=== PATIENT | female | born 1995 | race Caucasian/White ===

== ENCOUNTER 2017-12-04 23:54 | Inpatient (IN) | payer OTHER ==
[2017-12-05 00:55] LABS: Urine Appearance Clear; Urine Blood 1+ (Negative); Urine Color Yellow; Urine Ketones Trace (Negative); Urine Protein Negative (Negative); Urine Urobilinogen Negative (Negative)
[2017-12-05 01:47] LABS: ABS Basophils 0.1 10^3/ul (0-0.2); ABS Eosinophils 0.1 10^3/ul (0-0.6); ABS Lymphocytes 2.7 10^3/ul (1.0-4.8); ABS Monocytes 0.3 10^3/ul (0-0.8); ABS Nucleated RBC 0 10^3/ul; Eosinophil % 0.9 % (0-6); Hematocrit 41 % (35-47); Hemoglobin 13.9 g/dl (12.0-16.0); Lymphocyte % 37.4 % (25-47); Mean Corpuscular HGB Conc 34 g/dl (31-36); Mean Corpuscular Hemoglobin 31 pg (27-31); Mean Corpuscular Volume 91 fL (80-97); Mean Platelet Volume 8.3 um3 (7.4-10.4); Nucleated Red Blood Cells % 0; Platelet Count 276 10^3/ul (150-450); Red Blood Count 4.46 10^6/ul (4.0-5.4); Red Cell Distribution Width 12 % (10.5-15); White Blood Count 7.1 10^3/ul (3.5-10.8)
[2017-12-05 01:52] LABS: EGFR Non-African American 79.3 (>60)
--- NOTE | 2017-12-05 06:04 | ED ---
Ruth Paris Rebecca, scribed for Perry Yoon MD on 12/05/17 at 0026 . Psychiatric Complaint - HPI Summary HPI Summary: Pt is a 22 y/o F who presents to ED c/o a "psychotic breakdown." States that she is feeling very sad and depressed and has not stopped crying since 1900. Feels as though her symptoms became particularly worse at 1500, though she has been stressed out with school. Feels as though her mental health has been worsening since the onset of this academic year. Notes sleep disturbances. Denies SI/HIs currently, though explains she has SIs about 2x a month. Took Lexapro [employer]. Has not had any prior episodes that were this severe. LNMP 1 week ago. - History Of Current Complaint Chief Complaint: EDMentalHealth Time Seen by Provider: 12/05/17 00:25 Hx Obtained From: Patient Onset/Duration: Still Present, Worse Since - 1500 Character: Depressed Aggravating Factor(s): Recent Stress - School Associated Signs And Symptoms: Positive: Sleep Disturbance Has Suicidal: Denies: Thoughts Has Homicidal: Denies: Thoughts - Allergies/Home Medications Allergies/Adverse Reactions: Allergies Allergy/AdvReac Type Severity Reaction Status Date / Time No Known Allergies Allergy Verified 12/05/17 00:05 Home Medications: Home Medications Escitalopram Oxalate [Lexapro] 10 mg PO BEDTIME 12/05/17 [History Confirmed ] PMH/Surg Hx/FS Hx/Imm Hx Previously Healthy: Yes Endocrine/Hematology History: Denies: Hx Thyroid Disease Cardiovascular History: Denies: Hx Hypertension Infectious Disease History: No Infectious Disease History: Denies: Traveled Outside the [place] in Last 30 Days - Family History Known Family History: Positive: Cardiac Disease - grandmother, Diabetes - grandmother, Other - depression (mother) - Social History 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 Alcohol Use: Occasionally Substance Use Type: Reports: Marijuana Substance Use Comment - Amount & Last Used: Occasionally Smoking Status (MU): Never Smoked Tobacco Review of Systems Negative: Fever Positive: Depressed, Other - Sad, sleep disturbance; NEGATIVE: SIs, HIs All Other Systems Reviewed And Are Negative: Yes Physical Exam - Summary Physical Exam Summary: Appearance: Well appearing, no pain distress Skin: warm, dry, reflects adequate perfusion Head/face: normal Eyes: EOMI, NIR ENT: normal Neck: supple, non-tender Respiratory: CTA, breath sounds present Cardiovascular: RRR, pulses symmetrical Abdomen: non-tender, soft Bowel Sounds: present Musculoskeletal: normal, strength/ROM intact Neuro: normal, sensory motor intact, A&Ox3 Psych: Flat affect Triage Information Reviewed: Yes Vital Signs On Initial Exam: Initial Vitals Temp Pulse Resp BP Pulse Ox 98.1 F 74 20 133/87 100 12/05/17 00:05 12/05/17 00:05 12/05/17 00:05 12/05/17 00:05 12/05/17 00:05 Vital Signs Reviewed: Yes Diagnostics - Vital Signs Vital Signs Temp Pulse Resp BP Pulse Ox 12/05/17 00:05 98.1 F 74 20 133/87 100 - Laboratory Lab Results: Lab Results 12/05/17 12/05/17 12/05/17 Range/Units 00:36 00:36 01:22 WBC (3.5-10.8) 10^3/ul RBC (4.0-5.4) 10^6/ul Hgb (12.0-16.0) g/dl Hct (35-47) % MCV (80-97) fL MCH (27-31) pg MCHC (31-36) g/dl RDW (10.5-15) % Plt Count (150-450) 10^3/ul MPV (7.4-10.4) um3 Neut % (Auto) (38-83) % Lymph % (Auto) (25-47) % [place] % (Auto) (0-7) % Eos % (Auto) (0-6) % Baso % (Auto) (0-2) % Absolute Neuts (auto) (1.5-7.7) 10^3/ul Absolute Lymphs (auto) (1.0-4.8) 10^3/ul Absolute Monos (auto) (0-0.8) 10^3/ul Absolute Eos (auto) (0-0.6) 10^3/ul Absolute Basos (auto) (0-0.2) 10^3/ul Absolute Nucleated RBC 10^3/ul Nucleated RBC % Sodium 137 L (139-145) mmol/L Potassium 3.5 (3.5-5.0) mmol/L Chloride 101 (101-111) mmol/L Carbon Dioxide 27 (22-32) mmol/L Anion Gap 9 (2-11) mmol/L BUN 14 (6-24) mg/dL Creatinine 0.89 (0.51-0.95) mg/dL Est GFR ( Amer) 102.0 (>60) Est GFR (Non-Af Amer) 79.3 (>60) BUN/Creatinine Ratio 15.7 (8-20) Glucose 113 H (70-100) mg/dL Calcium 9.8 (8.6-10.3) mg/dL Total Bilirubin 0.30 (0.2-1.0) mg/dL AST 22 (13-39) U/L ALT 13 (7-52) U/L Alkaline Phosphatase 53 (34-104) U/L Total Protein 8.9 (6.4-8.9) g/dL Albumin 5.2 (3.2-5.2) g/dL Globulin 3.7 (2-4) g/dL Albumin/Globulin Ratio 1.4 (1-3) TSH 3.29 (0.34-5.60) mcIU/mL Beta HCG, Quant < 0.60 mIU/mL Urine Color Yellow Urine Appearance Clear Urine pH 7.0 (5-9) Ur Specific [place] 1.030 (1.010-1.030) Urine Protein Negative (Negative) Urine Ketones Trace A (Negative) Urine Blood 1+ A (Negative) Urine Nitrate Negative (Negative) Urine Bilirubin Negative (Negative) Urine Urobilinogen Negative (Negative) Ur Leukocyte Esterase 1+ A (Negative) Urine WBC (Auto) Trace(0-5/hpf) (Absent) Urine RBC (Auto) 2+(6-10/hpf) A (Absent) Ur Squamous Epith Cells Present A (Absent) Urine Bacteria Absent (Absent) Urine Glucose Negative (Negative) Salicylates < 2.50 (<30) mg/dL Urine Opiates Screen None detected (None Detect) Acetaminophen < 15 mcg/mL Ur Barbiturates Screen None detected (None Detect) Ur Phencyclidine Scrn None detected (None Detect) Ur Amphetamines Screen None detected (None Detect) U Benzodiazepines Scrn None detected (None Detect) Urine Cocaine Screen None detected (None Detect) U Cannabinoids Screen None detected (None Detect) Serum Alcohol < 10 (<10) mg/dL 04/24/18 Range/Units 01:22 WBC 7.1 (3.5-10.8) 10^3/ul RBC 4.46 (4.0-5.4) 10^6/ul Hgb 13.9 (12.0-16.0) g/dl Hct 41 (35-47) % MCV 91 (80-97) fL MCH 31 (27-31) pg MCHC 34 (31-36) g/dl RDW 12 (10.5-15) % Plt Count 276 (150-450) 10^3/ul MPV 8.3 (7.4-10.4) um3 Neut % (Auto) 56.5 (38-83) % Lymph % (Auto) 37.4 (25-47) % [place] % (Auto) 4.4 (0-7) % Eos % (Auto) 0.9 (0-6) % Baso % (Auto) 0.8 (0-2) % Absolute Neuts (auto) 4.0 (1.5-7.7) 10^3/ul Absolute Lymphs (auto) 2.7 (1.0-4.8) 10^3/ul Absolute Monos (auto) 0.3 (0-0.8) 10^3/ul Absolute Eos (auto) 0.1 (0-0.6) 10^3/ul Absolute Basos (auto) 0.1 (0-0.2) 10^3/ul Absolute Nucleated RBC 0 10^3/ul Nucleated RBC % 0 Sodium (139-145) mmol/L Potassium (3.5-5.0) mmol/L Chloride (101-111) mmol/L Carbon Dioxide (22-32) mmol/L Anion Gap (2-11) mmol/L BUN (6-24) mg/dL Creatinine (0.51-0.95) mg/dL Est GFR ( Amer) (>60) Est GFR (Non-Af Amer) (>60) BUN/Creatinine Ratio (8-20) Glucose (70-100) mg/dL Calcium (8.6-10.3) mg/dL Total Bilirubin (0.2-1.0) mg/dL AST (13-39) U/L ALT (7-52) U/L Alkaline Phosphatase (34-104) U/L Total Protein (6.4-8.9) g/dL Albumin (3.2-5.2) g/dL Globulin (2-4) g/dL Albumin/Globulin Ratio (1-3) TSH (0.34-5.60) mcIU/mL Beta HCG, Quant mIU/mL Urine Color Urine Appearance Urine pH (5-9) Ur Specific [place] (1.010-1.030) Urine Protein (Negative) Urine Ketones (Negative) Urine Blood (Negative) Urine Nitrate (Negative) Urine Bilirubin (Negative) Urine Urobilinogen (Negative) Ur Leukocyte Esterase (Negative) Urine WBC (Auto) (Absent) Urine RBC (Auto) (Absent) Ur Squamous Epith Cells (Absent) Urine Bacteria (Absent) Urine Glucose (Negative) Salicylates (<30) mg/dL Urine Opiates Screen (None Detect) Acetaminophen mcg/mL Ur Barbiturates Screen (None Detect) Ur Phencyclidine Scrn (None Detect) Ur Amphetamines Screen (None Detect) U Benzodiazepines Scrn (None Detect) Urine Cocaine Screen (None Detect) U Cannabinoids Screen (None Detect) Serum Alcohol (<10) mg/dL Result Diagrams: 12/05/17 01:22 12/05/17 01:22 Lab Statement: Any lab studies that have been ordered have been reviewed, and results considered in the medical decision making process. Course/Dx - Course Course Of Treatment: pt stable medically. Receiving full crisis evaluation. Assessment/Plan: Medically cleared for MHE at 0057. - Differential Dx/Clinical Impression Provider Diagnosis: Major depression Discharge - Sign-Out/Discharge Documenting (check all that apply): Sign-Out Patient Signing out patient TO: Arcadio Hooper - Pending MHE - Discharge Plan Condition: Stable Discharge Disposition Comment: sign out at 7am. Referrals: [facility] - Shaan JONES [Primary Care Provider] - - Billing Disposition and Condition Condition: STABLE The documentation as recorded by the Ruth baxter Rebecca accurately reflects the service I personally performed and the decisions made by , Perry Yoon MD.
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
[2017-12-06] MEDS ORDERED: Venlafaxine EXT RELEASE CAP* 75 MG PO ONE (12:45)
[2017-12-06] MEDS ORDERED: clonazePAM TAB(*) 0.5 MG PO PRN (12:48)
[2017-12-06] MEDS ORDERED: NON FORMULARY MED2 PO SCH (14:00)
[2017-12-06] MEDS: ARIPiprazole TAB* 2 MG PO SCH (16:10)
[2017-12-06] MEDS: ETHINYL ESTRADIOL PO SCH (16:11)
[2017-12-06] MEDS: NORGESTIMATE PO SCH (16:11)
[2017-12-06] MEDS: traZODone TAB* 50 MG TAB PO SCH (20:16)
[2017-12-07] MEDS: Venlafaxine EXT RELEASE CAP* 75 MG PO SCH (09:16)
[2017-12-07] MEDS: ETHINYL ESTRADIOL PO SCH (09:17)
[2017-12-07] MEDS: NORGESTIMATE PO SCH (09:17)
--- NOTE | 2017-12-07 11:43 | PN ---
Subjective - Subjective Subjective: Psychiatric Attending Progress Note: size worker (Amna Dunaway) and myself met with patient to discuss progress and discharge plans. Patient put in 72 hour letter today She reports that she feels ready for discharge. endorses significant decrease in her level of anxiety, brighter mood, and complete remission of suicidal thoughts. She has been attending group s and has found them useful. She spoke with warm in worker from [place] yesterday who will be speaking with her professors in order to arrange extension of due dates for the final papers and tests in all of her classes. 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 she is very much in favor of following up with both psychiatrist and therapist at [facility]. Vital Signs: Temp Pulse Resp BP Pulse Ox 98.1 F 90 16 98/69 100 12/07/17 07:50 12/07/17 07:50 12/07/17 13:52 12/07/17 07:50 12/07/17 07:50 Objective - Appearance Appearance: Well Developed/Nourished Dysmorphic Features: No Hygiene: Normal Grooming: Well Kept - Behavior Psychomotor Activities: Normal Exhibits Abnormal Movement: No - Attitude and Relatedness Attitude and Relatedness: Cooperative Eye Contact: Good - Speech Quality: Unpressured Latencies: Normal Quantity: Appropriate - Mood Patient's Decription of Mood: "Good" - Affect Observed Affect: Good Affect Consistent with: Euthymia - Thought Process Patient's Thought Process: Coherent, Goal Directed Thought Content: No Passive Wish, No Suicidal Planning, No Homicidal Ideation, No Paranoid Ideation - Sensorium Type of Hallucinations: Visual: No, Auditory: No, Command: No - Level of Consciousness Level of Consciousness: Alert Orientation: Yes Intact, Yes Orientated to Time, Yes Orientated to Place, Yes Orientated to Person - Impulse Control Impulse Control: Intact - Insight and Judgement Insight and Judgement: Good - Group Participation Particating in Group Activities: Yes - Medication Management Medication Management Adherence: Yes Assessment - Assessment Clinical Impression: patient is 22 year old admitted with major depressive episode. She has had good initial response to treatment. mood brighter, sleeping much better, and SI has remitted. patient is stable for discharge tomorrow Plan - Plan Treatment Plan: Plan: Increase Effexor XR to 150 mg in AM continue Abilify 2 mg daily continue Trazodone 50 mg qhs discharge tomorrow patient to follow up with [facility] for medication management and weekly therapy Medications: Current Medications Aripiprazole (Abilify Tab*) 2 mg PO DAILY@16 [facility] Last Admin: 12/06/17 16:10 Dose: 2 mg Clonazepam (Klonopin Tab(*)) 0.25 mg PO Q4H PRN PRN Reason: ANXIETY Norgestimate (Ortho Tri-Cyclen (Nf)) 1 tab PO DAILY [facility] Last Admin: 12/07/17 09:17 Dose: 1 tab Trazodone HCl (Desyrel Tab*) 50 mg PO BEDTIME [facility] Last Admin: 12/06/17 20:16 Dose: 50 mg Venlafaxine HCl (Effexor Xr Cap*) 75 mg PO DAILY [facility] Last Admin: 12/07/17 09:16 Dose: 75 mg
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
--- NOTE | 2017-12-07 14:06 | ED ---
Hank Paris Julia, scribed for Arcadio Hooper MD on 12/05/17 at 0728 . Progress - Progress Note Progress Note: This patient is signed out from Dr. Yoon at shift change. - Consult/PCP Time Called: 01:30 Course/Dx - Course Course Of Treatment: pt stable medically. Receiving full crisis evaluation. - Diagnoses Provider Diagnoses: Major depression Discharge - Sign-Out/Discharge Documenting (check all that apply): Receiving Sign-Out Receiving patient FROM: Perry Yoon - dispo - Discharge Plan Condition: Stable Referrals: [facility] [Primary Care Provider] - The documentation as recorded by the nohemyibHank pina Julia accurately reflects the service I personally performed and the decisions made by Rufus thakkar Jerry, MD.
[2017-12-07] MEDS: ARIPiprazole TAB* 2 MG PO SCH (16:23)
--- NOTE | 2017-12-07 16:55 | PN ---
MHU: Group Therapy Note - Service Type Service Type: [id number] Group Psychotherapy - Medication Education Group: Patient was attentive and participatory in group, and remained in good behavioral control. Patient stated understanding of material discussed and had appropriate questions.
[2017-12-07] MEDS: traZODone TAB* 50 MG TAB PO SCH (20:52)
[2017-12-08 07:40] VITALS: BP 105/65
[2017-12-08] MEDS: NORGESTIMATE PO SCH (09:23)
[2017-12-08] MEDS: ETHINYL ESTRADIOL PO SCH (09:23)
[2017-12-08] MEDS: Venlafaxine EXT RELEASE CAP* 75 MG PO SCH (09:23)
[2017-12-08] MEDS ORDERED: Venlafaxine EXT RELEASE CAP* 75 MG PO ONE (10:59)
--- NOTE | 2017-12-08 11:09 | DS ---
Treatment Course & Assessment Clinical Course & Impression: patient is 22 year old admitted with major depressive episode. She has had good initial response to treatment. mood brighter, sleeping much better, and SI has remitted. patient is stable for discharge tomorrow Discharge Planning - Discharge Planning Medications: Current Medications Aripiprazole (Abilify Tab*) 2 mg PO DAILY@16 [facility] Last Admin: 12/07/17 16:23 Dose: 2 mg Clonazepam (Klonopin Tab(*)) 0.25 mg PO Q4H PRN PRN Reason: ANXIETY Norgestimate (Ortho Tri-Cyclen (Nf)) 1 tab PO DAILY [facility] Last Admin: 12/08/17 09:23 Dose: 1 tab Trazodone HCl (Desyrel Tab*) 50 mg PO BEDTIME [facility] Last Admin: 12/07/17 20:52 Dose: 50 mg Venlafaxine HCl (Effexor Xr Cap*) 75 mg PO DAILY [facility] Last Admin: 12/08/17 09:23 Dose: 75 mg Discharge Planning: Prescriptions provided for discharge [] Yes [] No Follow up care details as per social work arrangements. Patient response to discharge plan: [] eager for discharge [] agreeable with discharge plan [] ambivalent about discharge [] disagrees with discharge today
== END 2017-12-08 11:30 | disposition home or self-care (01) | DRG 885 ==
LOC: ED 23:54 → BSU 12-05 15:56
PROVIDERS: ADMIT Psychiatry & Neurology Psychiatry; ATTEND Psychiatry & Neurology Psychiatry
PROC: GZHZZZZ Group Psychotherapy (ICD-10-PCS; principal; 2017-12-08)
DX: F33.2 Major depressive disorder, recurrent severe without psychotic features (principal); F12.90 Cannabis use, unspecified, uncomplicated; R45.851 Suicidal ideations; F41.9 Anxiety disorder, unspecified; Z81.8 Family history of other mental and behavioral disorders; Z82.49 Family history of ischemic heart disease and other diseases of the circulatory system; Z83.3 Family history of diabetes mellitus; Z72.89 Other problems related to lifestyle
CPT/HCPCS: 36415; 80053; 80307; 80320; 80329; 81003; 81015; 84436; 84439; 84443; 84702; 85025; 87086; 90853; 96102; 99222; 99232; 99238; 99283; A9270-GY; G0480

== ENCOUNTER 2018-01-03 12:13 | Inpatient (IN) | payer OTHER ==
[2018-01-03 13:14] LABS: Urine Appearance Clear; Urine Blood 1+ (Negative); Urine Color Yellow; Urine Ketones Trace (Negative); Urine Protein Negative (Negative); Urine Red Blood Cell Trace(0-2/hpf) (Absent); Urine Specific Gravity 1.009 (1.010-1.030); Urine Urobilinogen Negative (Negative); Urine White Blood Cell Trace(0-5/hpf) (Absent)
[2018-01-03 13:42] LABS: ABS Basophils 0.1 10^3/ul (0-0.2); ABS Eosinophils 0.1 10^3/ul (0-0.6); ABS Lymphocytes 1.7 10^3/ul (1.0-4.8); ABS Monocytes 0.3 10^3/ul (0-0.8); ABS Neutrophils 3.4 10^3/ul (1.5-7.7); ABS Nucleated RBC 0 10^3/ul; Hematocrit 37 % (35-47); Hemoglobin 12.5 g/dl (12.0-16.0); Lymphocyte % 31.3 % (25-47); Mean Corpuscular HGB Conc 34 g/dl (31-36); Mean Corpuscular Hemoglobin 31 pg (27-31); Mean Corpuscular Volume 92 fL (80-97); Mean Platelet Volume 7.9 um3 (7.4-10.4); Nucleated Red Blood Cells % 0.1; Platelet Count 229 10^3/ul (150-450); Red Blood Count 4.03 10^6/ul (4.0-5.4); Red Cell Distribution Width 12 % (10.5-15); White Blood Count 5.6 10^3/ul (3.5-10.8)
[2018-01-03 13:59] LABS: EGFR Non-African American 108.2 (>60)
[2018-01-03] MEDS: traZODone TAB* 50 MG TAB PO SCH (22:08)
--- NOTE | 2018-01-04 06:48 | ED ---
Progress - Progress Note Progress Note: Patient was to be transferred as per Dr. Bui's note. Beds became available and it is planned for her to be [place] here [place] [facility] - Consult/PCP Time Called: 18:30 Course/Dx - Diagnoses Provider Diagnoses: Suicidal ideation, Depressive disorder Discharge - Sign-Out/Discharge Documenting (check all that apply): Discharge/Admit/Transfer - Discharge Plan Condition: Stable [facility]position[place] [facility] [place]errals: [facility] - Shaan JONES [Primary Care Provider] - - Billing Disposition and Condition Condition: STABLE Disposition: [facility]
--- NOTE | 2018-01-04 08:12 | PN ---
ED Flex Patient Progress Note Date of Service: 01/04/18 Subjective: This is a 22 year-old F who is pending admission to [facility] secondary to SI. Pt offers no complaints at this time. She states she is feeling better. Objective: Vitals: Most recent vital signs documented below. General NAD, Alert and oriented x3. Heart: rrr at 70bpm Lungs: CTA or with rales, rhonchi, wheezing Laboratory: Current laboratory results documented below. Assessment: SI depression Plan: Pending psychiatric to admit will follow up daily until bed available condition:stable dispo: admit Vital Signs Temp Pulse Resp BP Pulse Ox 98.4 F 80 20 133/86 98 01/03/18 12:35 01/03/18 12:35 01/03/18 12:35 01/03/18 12:35 01/03/18 12:35 Lab Results - Entire Visit 01/03/18 01/03/18 01/03/18 13:30 13:30 12:45 WBC 5.6 RBC 4.03 Hgb 12.5 Hct 37 MCV 92 MCH 31 MCHC 34 RDW 12 Plt Count 229 MPV 7.9 Neut % (Auto) 61.9 Lymph % (Auto) 31.3 Crisp % (Auto) 4.6 Eos % (Auto) 1.0 Baso % (Auto) 1.2 Absolute Neuts (auto) 3.4 Absolute Lymphs (auto) 1.7 Absolute Monos (auto) 0.3 Absolute Eos (auto) 0.1 Absolute Basos (auto) 0.1 Absolute Nucleated RBC 0 Nucleated RBC % 0.1 Sodium 137 L Potassium 3.8 Chloride 105 Carbon Dioxide 24 Anion Gap 8 BUN 10 Creatinine 0.68 Est GFR ( Amer) 139.1 Est GFR (Non-Af Amer) 108.2 BUN/Creatinine Ratio 14.7 Glucose 86 Calcium 9.4 Total Bilirubin 0.50 AST 19 ALT 11 Alkaline Phosphatase 51 Total Protein 7.4 Albumin 4.4 Globulin 3.0 Albumin/Globulin Ratio 1.5 TSH 0.58 Urine Color Urine Appearance Urine pH Ur Specific [place] Urine Protein Urine Ketones Urine Blood Urine Nitrate Urine Bilirubin Urine Urobilinogen Ur Leukocyte Esterase Urine WBC (Auto) Urine RBC (Auto) Ur Squamous Epith Cells Urine Bacteria Urine Glucose Salicylates < 2.50 Urine Opiates Screen None detected Acetaminophen < 15 Ur Barbiturates Screen None detected Ur Phencyclidine Scrn None detected Ur Amphetamines Screen None detected U Benzodiazepines Scrn None detected Urine Cocaine Screen None detected U Cannabinoids Screen None detected Serum Alcohol < 10 01/03/18 12:45 WBC RBC Hgb Hct MCV MCH MCHC RDW Plt Count MPV Neut % (Auto) Lymph % (Auto) Crisp % (Auto) Eos % (Auto) Baso % (Auto) Absolute Neuts (auto) Absolute Lymphs (auto) Absolute Monos (auto) Absolute Eos (auto) Absolute Basos (auto) Absolute Nucleated RBC Nucleated RBC % Sodium Potassium Chloride Carbon Dioxide Anion Gap BUN Creatinine Est GFR ( Amer) Est GFR (Non-Af Amer) BUN/Creatinine Ratio Glucose Calcium Total Bilirubin AST ALT Alkaline Phosphatase Total Protein Albumin Globulin Albumin/Globulin Ratio TSH Urine Color Yellow Urine Appearance Clear Urine pH 5.0 Ur Specific [place] 1.009 L Urine Protein Negative Urine Ketones Trace A Urine Blood 1+ A Urine Nitrate Negative Urine Bilirubin Negative Urine Urobilinogen Negative Ur Leukocyte Esterase Negative Urine WBC (Auto) Trace(0-5/hpf) Urine RBC (Auto) Trace(0-2/hpf) Ur Squamous Epith Cells Present A Urine Bacteria 1+ A Urine Glucose Negative Salicylates Urine Opiates Screen Acetaminophen Ur Barbiturates Screen Ur Phencyclidine Scrn Ur Amphetamines Screen U Benzodiazepines Scrn Urine Cocaine Screen U Cannabinoids Screen Serum Alcohol
[2018-01-04] MEDS ORDERED: ARIPiprazole TAB* 2 MG ONE (08:26)
[2018-01-04] MEDS: ARIPiprazole TAB* 2 MG PO SCH ×2 (09:13→23:29)
[2018-01-04] MEDS: Venlafaxine EXT RELEASE CAP* 75 MG PO SCH (09:15)
[2018-01-04] MEDS: NORGESTIMATE PO SCH (09:17)
[2018-01-04] MEDS: ETHINYL ESTRADIOL PO SCH (09:17)
[2018-01-04] MEDS: [UNRECOGNIZED DRUG - OTHER] PO SCH (09:17)
--- NOTE | 2018-01-04 10:21 | ED ---
Hank Paris Julia, scribed for Sam Bui MD on 01/03/18 at 1231 . Psychiatric Complaint - HPI Summary HPI Summary: This is a 22 year old F BIBA to [facility] with a chief complaint of worsening depression with SI this morning. She reports a plan to overdose with sleeping pills. She is unable to sleep without medication. She reports decreased appetite. She reports previous SI, without an attempt. - History Of Current Complaint Time Seen by Provider: 01/03/18 12:16 Hx Obtained From: Patient Onset/Duration: Gradual Onset, Lasting Hours Timing: Constant Character: Depressed Associated Signs And Symptoms: Positive: Sleep Disturbance, Appetite Change Related History: Positive For: Prior Psychiatric Issues Has Suicidal: Reports: Thoughts, With A Plan - Allergies/Home Medications Allergies/Adverse Reactions: Allergies Allergy/AdvReac Type Severity Reaction Status Date / Time No Known Allergies Allergy Verified 12/05/17 00:05 PMH/Surg Hx/FS Hx/Imm Hx Endocrine/Hematology History: Denies: Hx Thyroid Disease Cardiovascular History: Denies: Hx Hypertension History: Reports: Other Problems/Disorders - HPV positive Sensory History: Denies: Hx Contacts or Glasses, Hx Hearing Aid Opthamlomology History: Denies: Hx Contacts or Glasses Psychiatric History: Reports: Hx Anxiety, Hx Depression - onset 2015, Hx Community Mental Health Tx - CAPS Denies: Hx of Violent Episodes Against Others Infectious Disease History: No - Family History Known Family History: Positive: Cardiac Disease - grandmother, Diabetes - grandmother, Other - depression (mother) - Social History Alcohol Use: Occasionally Substance Use Type: Reports: Marijuana Substance Use Comment - Amount & Last Used: Occasionally Smoking Status (MU): Never Smoked Tobacco Have You Smoked in the Last Year: No Review of Systems Constitutional: Negative Positive: Depressed All Other Systems Reviewed And Are Negative: Yes Physical Exam - Summary Physical Exam Summary: VITAL SIGNS: Reviewed. GENERAL: Patient is a well-developed and nourished femalewho is lying comfortable in the stretcher. Patient is not in any acute respiratory distress. HEAD AND FACE: No signs of trauma. No ecchymosis, hematomas or skull depressions. No sinus tenderness. EYES: PERRLA, EOMI x 2, No injected conjunctiva, no nystagmus. EARS: Hearing grossly intact. Ear canals and tympanic membranes are within normal limits. MOUTH: Oropharynx within normal limits. NECK: Supple, trachea is midline, no adenopathy, no JVD, no carotid bruit, no c- spine tenderness, neck with full ROM. CHEST: Symmetric, no tenderness at palpation LUNGS: Clear to auscultation bilaterally. No wheezing or crackles. CVS: Regular rate and rhythm, S1 and S2 present, no murmurs or gallops appreciated. ABDOMEN: Soft, non-tender. No signs of distention. No rebound no guarding, and no masses palpated. Bowel sounds are normal. EXTREMITIES: FROM in all major joints, no edema, no cyanosis or clubbing. NEURO: Alert and oriented x 3. No acute neurological deficits. Speech is normal and follows commands. SKIN: Dry and warm PSYCH: Depressed, quiet, and reports suicidal thoughts and plan. No homicidal thoughts or plan. No signs of psychosis or pressure speech. No tangential speech. Triage Information Reviewed: Yes Vital Signs On Initial Exam: Initial Vitals Temp Pulse Resp BP Pulse Ox 98.4 F 80 20 133/86 98 01/03/18 12:35 01/03/18 12:35 01/03/18 12:35 01/03/18 12:35 01/03/18 12:35 Vital Signs Reviewed: Yes Diagnostics - Vital Signs Vital Signs Temp Pulse Resp BP Pulse Ox 01/03/18 12:35 98.4 F 80 20 133/86 98 - Laboratory Lab Results: Lab Results 01/03/18 01/03/18 Range/Units 12:45 12:45 Urine Color Yellow Urine Appearance Clear Urine pH 5.0 (5-9) Ur Specific [place] 1.009 L (1.010-1.030) Urine Protein Negative (Negative) Urine Ketones Trace A (Negative) Urine Blood 1+ A (Negative) Urine Nitrate Negative (Negative) Urine Bilirubin Negative (Negative) Urine Urobilinogen Negative (Negative) Ur Leukocyte Esterase Negative (Negative) Urine WBC (Auto) Trace(0-5/hpf) (Absent) Urine RBC (Auto) Trace(0-2/hpf) (Absent) Ur Squamous Epith Cells Present A (Absent) Urine Bacteria 1+ A (Absent) Urine Glucose Negative (Negative) Urine Opiates Screen None detected (None Detect) Ur Barbiturates Screen None detected (None Detect) Ur Phencyclidine Scrn None detected (None Detect) Ur Amphetamines Screen None detected (None Detect) U Benzodiazepines Scrn None detected (None Detect) Urine Cocaine Screen None detected (None Detect) U Cannabinoids Screen None detected (None Detect) Result Diagrams: 01/03/18 13:30 01/03/18 13:30 Lab Statement: Any lab studies that have been ordered have been reviewed, and results considered in the medical decision making process. Course/Dx - Course Assessment/Plan: This patient is a 22-year-old female who presents to the emergency room with a chief complaint of suicidal ideation. Patient reports that she has history of depression and suicidal ideations. She has insomnia and decreased appetite. Blood work w/o a significant abnormality. She is medically cleared. She is awaiting for a MHE. Patient is hemodynamically stable and A+O x 3. Patient was signed out to Dr. Yoon at shift change - Differential Dx/Clinical Impression Differential Diagnosis/HQI/PQRI: Positive: Anxiety, Depression, Suicidal Ideation Provider Diagnosis: Suicidal ideation, Depressive disorder Discharge - Sign-Out/Discharge Documenting (check all that apply): Discharge/Admit/Transfer - admit - Discharge Plan Condition: Stable [facility] [place] Disposition Comment: No beds are available. Patient will be transferred. Referrals: [facility] - Shaan JONES [Primary Care Provider] - - Billing Disposition and Condition Condition: STABLE Disposition: [facility] The documentation as recorded by the Hank baxter Julia accurately reflects the service I personally performed and the decisions made by , Sam Bui MD.
[2018-01-04] MEDS ORDERED: Acetaminophen TAB* 325 MG PO PRN (12:39)
[2018-01-04] MEDS ORDERED: Al Hydrox/Mg Hydrox/Simet LIQ* 30 ML UDC PO PRN (12:39)
--- NOTE | 2018-01-04 15:32 | ED ---
I, Rodríguez Rosario, scribed for David Fraire MD on 01/04/18 at 1210 . Progress - Progress Note Progress Note: The patient was signed out from Dr. Yoon awaiting disposition. The mental health senior advisor Dr. Trimble has decided it would be best to admit the patient. The patient will be a voluntary admit for depressive disorder. - Consult/PCP Time Called: 18:30 Course/Dx - Diagnoses Provider Diagnoses: Depressive disorder Discharge - Sign-Out/Discharge Documenting (check all that apply): Discharge/Admit/Transfer - Discharge Plan Condition: Stable [place]position[place] [facility] [facility] - Shaan [Primary Care Provider] - The documentation as recorded by the Abraham baxter Gabriel accurately reflects the service I personally performed and the decisions made by , David Fraire MD.
[2018-01-04] MEDS ORDERED: traZODone TAB* 50 MG TAB ONE (23:06)
[2018-01-04] MEDS: traZODone TAB* 50 MG TAB PO SCH (23:22)
[2018-01-05] MEDS: ARIPiprazole TAB* 2 MG PO SCH (08:35)
[2018-01-05] MEDS: Venlafaxine EXT RELEASE CAP* 75 MG PO SCH (08:35)
[2018-01-05] MEDS: ETHINYL ESTRADIOL PO SCH (09:45)
[2018-01-05] MEDS: [UNRECOGNIZED DRUG - OTHER] PO SCH (09:45)
[2018-01-05] MEDS: NORGESTIMATE PO SCH (09:45)
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
[2018-01-05] MEDS ORDERED: ARIPiprazole TAB* 5 MG PO ONE (12:13)
[2018-01-05] MEDS ORDERED: ARIPiprazole TAB* 2 MG PO ONE (13:00)
[2018-01-05] MEDS: traZODone TAB* 50 MG TAB PO SCH (20:39)
[2018-01-06] MEDS: buPROPion SR TAB.SR* 100 MG PO SCH (08:24)
[2018-01-06] MEDS: ARIPiprazole TAB* 5 MG PO SCH (08:24)
[2018-01-06] MEDS: Venlafaxine EXT RELEASE CAP* 75 MG PO SCH (08:24)
[2018-01-06] MEDS: ETHINYL ESTRADIOL PO SCH (08:25)
[2018-01-06] MEDS: [UNRECOGNIZED DRUG - OTHER] PO SCH (08:25)
[2018-01-06] MEDS: NORGESTIMATE PO SCH (08:25)
[2018-01-06] MEDS: traZODone TAB* 50 MG TAB PO SCH (20:48)
[2018-01-07] MEDS: Venlafaxine EXT RELEASE CAP* 75 MG PO SCH (08:55)
[2018-01-07] MEDS: buPROPion SR TAB.SR* 100 MG PO SCH (08:56)
[2018-01-07] MEDS: ARIPiprazole TAB* 5 MG PO SCH (08:56)
[2018-01-07] MEDS: NORGESTIMATE PO SCH (08:57)
[2018-01-07] MEDS: ETHINYL ESTRADIOL PO SCH (08:57)
[2018-01-07] MEDS: [UNRECOGNIZED DRUG - OTHER] PO SCH (08:57)
--- NOTE | 2018-01-07 17:14 | PN ---
Subjective - Subjective Date of Service: 01/07/18 Service Type: 30458 Hosp care 15 min low complexity Subjective: Olamide reports of feeling sad and had not thought about suicide today. Feels safe on the unit. Looking forwards to her meds adjusted to the max. She thinks she is on the right meds and they are helping. Texed he parents in [place] and awaiting their response. Objective - Appearance Appearance: Thin Framed Dysmorphic Features: No Hygiene: Normal Grooming: Well Kept - Behavior Psychomotor Activities: Normal Exhibits Abnormal Movement: No - Attitude and Relatedness Attitude and Relatedness: Appropriate Eye Contact: Fair - Speech Quality: Unpressured Latencies: Normal Quantity: Appropriate - Mood Patient's Decription of Mood: "Okay" - Affect Observed Affect: Constricted - Thought Process Patient's Thought Process: Coherent, Goal Directed Thought Content: No Passive Wish, No Suicidal Planning, No Homicidal Ideation, No Paranoid Ideation - Sensorium Experiencing Hallucinations: No, Sensorium is Clear Type of Hallucinations: Visual: No, Auditory: No, Command: No - Level of Consciousness Level of Consciousness: Alert Orientation: Yes Intact, Yes Orientated to Time, Yes Orientated to Place, Yes Orientated to Person - Impulse Control Impulse Control: Intact - Insight and Judgement Insight and Judgement: Good - Group Participation Particating in Group Activities: Yes - Medication Management Medication Management Adherence: Yes Assessment - Assessment Merits Inpatient Hospitalization: For Immediate Safety, For Stabilization, Pending Safe DC Plan Clinical Impression: Depression is improving and she hasn't thought about suicide today. Plan - Plan Treatment Plan: Name: OLAMIDE SIDDIQUI Birthdate: 1995 [id number] Continued Medication Management: Continue Outpt Medication Medications: Current Medications Acetaminophen (Tylenol Tab*) 650 mg PO Q4H PRN PRN Reason: for pain; or Temp >101 F Al Hydrox/Mg Hydrox/Simethicone (Maalox Plus*) 30 ml PO Q4H PRN PRN Reason: INDIGESTION Aripiprazole (Abilify Tab*) 5 mg PO DAILY [facility] Last Admin: 01/07/18 08:56 Dose: 5 mg Bupropion HCl (Wellbutrin Sr Tab*) 100 mg PO DAILY [facility] Last Admin: 01/07/18 08:56 Dose: 100 mg Nf Med* Ortho Tri Cyclen (Norgestimate -Eth Estradiol) 1 dose PO DAILY [facility] Last Admin: 01/07/18 08:57 Dose: Not Given Trazodone HCl (Desyrel Tab*) 50 mg PO BEDTIME [facility] Last Admin: 01/06/18 20:48 Dose: 50 mg Venlafaxine HCl (Effexor Xr Cap*) 150 mg PO DAILY [facility] Last Admin: 01/07/18 08:55 Dose: 150 mg - Discharge Plan Discharge Plan: Outpatient Follow Up Outpatient Program: Counseling/Psych Services at [place]
[2018-01-07] MEDS: traZODone TAB* 50 MG TAB PO SCH (21:32)
[2018-01-08] MEDS: ARIPiprazole TAB* 5 MG PO SCH (09:11)
[2018-01-08] MEDS: [UNRECOGNIZED DRUG - OTHER] PO SCH (09:11)
[2018-01-08] MEDS: Venlafaxine EXT RELEASE CAP* 75 MG PO SCH (09:11)
[2018-01-08] MEDS: NORGESTIMATE PO SCH (09:11)
[2018-01-08] MEDS: buPROPion SR TAB.SR* 100 MG PO SCH (09:11)
[2018-01-08] MEDS: ETHINYL ESTRADIOL PO SCH (09:11)
--- NOTE | 2018-01-08 11:24 | PN ---
Subjective - Subjective Date of Service: 01/08/18 Service Type: 87215 Hosp care 15 min low complexity Subjective: Gera is feeling anxious this morning and thus has her sujatha bear hugged to her chest during our meeting. She can't say what the anxiety is about, but she is pleased that it is more tolerable than the thoughts she is used to: those of suicide and misery. She hasn't thought of suicide in a way that frightens or upsets her today and martha'ts a new experience for her. She's quite happy about that. Objective - Appearance Appearance: Healthy Appearing Dysmorphic Features: No Hygiene: Normal Grooming: Well Kept - Behavior Psychomotor Activities: Normal Exhibits Abnormal Movement: No - Attitude and Relatedness Attitude and Relatedness: Superficially Cooperative Eye Contact: Good - Speech Quality: Unpressured Latencies: Normal Quantity: Appropriate - Mood Patient's Decription of Mood: "Okay" - Affect Observed Affect: Constricted Affect Consistent with: Dysphoria - Thought Process Patient's Thought Process: Coherent Thought Content: No Passive Wish, No Suicidal Planning, No Homicidal Ideation, No Paranoid Ideation - Sensorium Experiencing Hallucinations: No, Sensorium is Clear Type of Hallucinations: Visual: No, Auditory: No, Command: No - Level of Consciousness Level of Consciousness: Alert Orientation: Yes Intact, Yes Orientated to Time, Yes Orientated to Place, Yes Orientated to Person - Impulse Control Impulse Control: Intact - Insight and Judgement Insight and Judgement: Fair - Group Participation Particating in Group Activities: Yes - Medication Management Medication Management Adherence: Yes - Gera is pleasant and feels like she is not suicidal for the first time in a long time. Assessment - Assessment Merits Inpatient Hospitalization: For Immediate Safety Clinical Impression: Gera is doing well today. She has just turned the corner of feeling emotionally well. She does not know if it is by being on the unit and gettiing support, going to groups, eating regularly, and sleeping well. She thinks that might have something to do with it. Plan - Plan Treatment Plan: Name: GERA SIDDIQUI Birthdate: 1995 [id number] Medications: Current Medications Acetaminophen (Tylenol Tab*) 650 mg PO Q4H PRN PRN Reason: for pain; or Temp >101 F Al Hydrox/Mg Hydrox/Simethicone (Maalox Plus*) 30 ml PO Q4H PRN PRN Reason: INDIGESTION Aripiprazole (Abilify Tab*) 5 mg PO DAILY [facility] Last Admin: 01/08/18 09:11 Dose: 5 mg Bupropion HCl (Wellbutrin Sr Tab*) 100 mg PO DAILY [facility] Last Admin: 01/08/18 09:11 Dose: 100 mg Nf Med* Ortho Tri Cyclen (Norgestimate -Eth Estradiol) 1 dose PO DAILY [facility] Last Admin: 01/08/18 09:11 Dose: Not Given Trazodone HCl (Desyrel Tab*) 50 mg PO BEDTIME [facility] Last Admin: 01/07/18 21:32 Dose: 50 mg Venlafaxine HCl (Effexor Xr Cap*) 150 mg PO DAILY [facility] Last Admin: 01/08/18 09:11 Dose: 150 mg - Discharge Plan Additional Comments: The current plan is to keep medications the same and to encourage interactions with others. She was moved to 30 minute checks and given staff pass and computer privileges.
[2018-01-08] MEDS: traZODone TAB* 50 MG TAB PO SCH (21:10)
[2018-01-09] MEDS: ARIPiprazole TAB* 5 MG PO SCH (08:57)
[2018-01-09] MEDS: Venlafaxine EXT RELEASE CAP* 75 MG PO SCH (08:57)
[2018-01-09] MEDS: buPROPion SR TAB.SR* 100 MG PO SCH ×2 (08:58→16:59)
[2018-01-09] MEDS: NORGESTIMATE PO SCH (08:59)
[2018-01-09] MEDS: ETHINYL ESTRADIOL PO SCH (08:59)
[2018-01-09] MEDS: [UNRECOGNIZED DRUG - OTHER] PO SCH (08:59)
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
--- NOTE | 2018-01-09 13:42 | PN ---
MHU: Group Therapy Note - Service Type Service Type: [id number] Group Psychotherapy - Cognitive Behavioral Group Therapy ( CBT):Patient was attentive and participatory in CBT programming this morning, and remained in good behavioral control. Patient expressed positive insights regarding relevant treatment interventions and goals.
[2018-01-09] MEDS: traZODone TAB* 50 MG TAB PO SCH (21:26)
[2018-01-10] MEDS ORDERED: ARIPiprazole TAB* 5 MG PO SCH (09:00)
[2018-01-10] MEDS: Venlafaxine EXT RELEASE CAP* 75 MG PO SCH (09:02)
[2018-01-10] MEDS: ETHINYL ESTRADIOL PO SCH (09:03)
[2018-01-10] MEDS: [UNRECOGNIZED DRUG - OTHER] PO SCH (09:03)
[2018-01-10] MEDS: buPROPion SR TAB.SR* 100 MG PO SCH ×2 (09:03→16:49)
[2018-01-10] MEDS: NORGESTIMATE PO SCH (09:03)
--- NOTE | 2018-01-10 11:37 | PN ---
MHU: Group Therapy Note - Service Type Service Type: [id number] Group Psychotherapy - Cognitive Behavioral Group Therapy ( CBT):Patient was attentive and participatory in CBT programming this morning, and remained in good behavioral control. Patient expressed positive insights regarding relevant treatment interventions and goals.
--- NOTE | 2018-01-10 12:48 | PN ---
Subjective - Subjective Subjective: Psychiatric Attending Progress Note woke up with improved mood today. less depressed. felt oversedated after morning medications (likely increased abilify) and heard "ringing in her head briefly". slept well last night attended groups today, read with improved concentration. continues to deny SI. we talked at length about short term plans after discharge. Olamide would like to discharge tomorrow. She feels she is ready. 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 He was very understanding and told her she needs to think of her self as first and chemistry as second. She feels very supported by PI. She will relax after discharge and not return to work until Monday. She has not heard from parents who are still in [place] travelling. She is looking forward to going to [place] for one week in February. Objective - Appearance Appearance: Well Developed/Nourished Dysmorphic Features: No Hygiene: Normal Grooming: Well Kept - Behavior Psychomotor Activities: Normal Exhibits Abnormal Movement: No - Attitude and Relatedness Attitude and Relatedness: Appropriate Eye Contact: Good - Speech Quality: Unpressured Latencies: Normal Quantity: Appropriate - Mood Patient's Decription of Mood: "Okay" - Affect Observed Affect: Non-labile - Thought Process Patient's Thought Process: Coherent Thought Content: No Passive Wish, No Suicidal Planning, No Homicidal Ideation, No Paranoid Ideation - Level of Consciousness Level of Consciousness: Alert Orientation: Yes Intact, Yes Orientated to Time, Yes Orientated to Place, Yes Orientated to Person - Impulse Control Impulse Control: Intact - Insight and Judgement Insight and Judgement: Good - Group Participation Particating in Group Activities: Yes - Medication Management Medication Management Adherence: Yes Assessment - Assessment Clinical Impression: 22 yo admitted for recurrent depressive episode with SI. SI has remitted. Patient's mood is brighter she feels ready for discharge and agrees to follow up with psychiatist at [facility] next week for medication management and with new therapist in the community for psychotherapy. Plan - Plan Treatment Plan: Name: OLAMIDE SIDDIQUI Birthdate: 1995 [id number] Medications: Plan: Move Abilify 7.5 mg from AM to HS effexor XR 225 mg QAM Trazodone 50 mg qhs Wellbutrin SR 100 mg BId d/c tomorrow
[2018-01-10] MEDS: traZODone TAB* 50 MG TAB PO SCH (20:43)
[2018-01-11 07:30] VITALS: BP 94/60
[2018-01-11] MEDS: Venlafaxine EXT RELEASE CAP* 75 MG PO SCH (08:59)
[2018-01-11] MEDS: ETHINYL ESTRADIOL PO SCH (08:59)
[2018-01-11] MEDS: [UNRECOGNIZED DRUG - OTHER] PO SCH (08:59)
[2018-01-11] MEDS: buPROPion SR TAB.SR* 100 MG PO SCH (08:59)
[2018-01-11] MEDS: NORGESTIMATE PO SCH (08:59)
--- NOTE | 2018-01-11 11:29 | PN ---
MHU: Group Therapy Note - Service Type Service Type: [id number] Group Psychotherapy - Cognitive Behavioral Group Therapy ( CBT):Patient was attentive and participatory in CBT programming this morning, and remained in good behavioral control. Patient expressed positive insights regarding relevant treatment interventions and goals.
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
[2018-01-11] MEDS ORDERED: ARIPiprazole TAB* 5 MG PO SCH (21:00)
== END 2018-01-11 14:40 | disposition home or self-care (01) | DRG 885 ==
LOC: ED 12:13 → BSU 01-04 22:46
PROVIDERS: ADMIT Psychiatry & Neurology Psychiatry; ATTEND Psychiatry & Neurology Psychiatry
PROC: GZHZZZZ Group Psychotherapy (ICD-10-PCS; principal; 2018-01-04)
DX: F33.2 Major depressive disorder, recurrent severe without psychotic features (principal); R45.851 Suicidal ideations; F43.10 Post-traumatic stress disorder, unspecified; F41.9 Anxiety disorder, unspecified; Z82.49 Family history of ischemic heart disease and other diseases of the circulatory system; Z83.3 Family history of diabetes mellitus; Z81.8 Family history of other mental and behavioral disorders; Z72.89 Other problems related to lifestyle; Z91.81 History of falling
CPT/HCPCS: 36415; 80053; 80307; 80320; 80329; 81003; 81015; 84443; 85025; 86703; 87086; 90853; 99222; 99231; 99232; 99233; 99238; 99285; A9270-GY; G0480

== ENCOUNTER 2018-03-18 16:44 | Emergency (ER) | payer OTHER ==
[2018-03-18 17:33] LABS: ABS Basophils 0.1 10^3/ul (0-0.2); ABS Eosinophils 0.1 10^3/ul (0-0.6); ABS Lymphocytes 1.9 10^3/ul (1.0-4.8); ABS Monocytes 0.3 10^3/ul (0-0.8); ABS Neutrophils 4.8 10^3/ul (1.5-7.7); ABS Nucleated RBC 0 10^3/ul; Eosinophil % 0.8 % (0-6); Hematocrit 38 % (35-47); Hemoglobin 12.9 g/dl (12.0-16.0); Lymphocyte % 26.8 % (25-47); Mean Corpuscular HGB Conc 34 g/dl (31-36); Mean Corpuscular Hemoglobin 31 pg (27-31); Mean Corpuscular Volume 92 fL (80-97); Mean Platelet Volume 7.4 um3 (7.4-10.4); Nucleated Red Blood Cells % 0.1; Platelet Count 272 10^3/ul (150-450); Red Blood Count 4.11 10^6/ul (4.00-5.40); Red Cell Distribution Width 13 % (10.5-15); White Blood Count 7.1 10^3/ul (3.5-10.8)
--- NOTE | 2018-03-18 17:49 | ED ---
Psychiatric Complaint - HPI Summary HPI Summary: This is sahil Marroquin documenting for attending Hipolito Gómez MD. This patient is a 22 year old F presenting to [facility] with a chief complaint of depression with SI since the suicide of her best friend 3 days ago. Patient reports decrease in appetite and difficulty sleeping. PMHx of depression, just stopped medication 2 weeks ago. The pt reports that she has not tried to hurt herself but her method of suicide would be overdose. Pt reports she has attempted suicide in the past by mixing EtOh, marijuana, and another drug but she just fell asleep. Pt has a therapist but they are on vacation. - History Of Current Complaint Chief Complaint: EDMentalHealth Time Seen by Provider: 03/18/18 17:28 Hx Obtained From: Patient Onset/Duration: Sudden Onset, Lasting Days Timing: Constant Severity Initially: Severe Severity Currently: Severe Character: Depressed Aggravating Factor(s): Other - suicide of friend Associated Signs And Symptoms: Positive: Social Withdrawal, Social Isolation Related History: Positive For: Prior Psychiatric Issues - depression Has Suicidal: Reports: Thoughts, Has Prior Attempt(s) - Allergies/Home Medications Allergies/Adverse Reactions: Allergies Allergy/AdvReac Type Severity Reaction Status Date / Time benzoyl peroxide Allergy Rash Verified 03/18/18 17:26 Home Medications: Home Medications Venlafaxine TAB (NF) [Effexor TAB (NF)] 225 mg PO DAILY 03/18/18 [History Confirmed 03/18/18] buPROPion SR TAB* [Wellbutrin SR TAB*] 100 mg PO DAILY 03/18/18 [History Confirmed 03/18/18] PMH/Surg Hx/FS Hx/Imm Hx Endocrine/Hematology History: Denies: Hx Thyroid Disease Cardiovascular History: Denies: Hx Hypertension History: Reports: Other Problems/Disorders - HPV positive Sensory History: Denies: Hx Contacts or Glasses, Hx Hearing Aid Opthamlomology History: Denies: Hx Contacts or Glasses Psychiatric History: Reports: Hx Anxiety, Hx Depression - onset 2016, Hx Inpatient Treatment, Hx Community Mental Health Tx - CAPS Denies: Hx of Violent Episodes Against Others Infectious Disease History: No Infectious Disease History: Denies: Traveled Outside the [place] in Last 30 Days - Family History Known Family History: Positive: Cardiac Disease - grandmother, Diabetes - grandmother, Other - depression (mother) - Social History Alcohol Use: Occasionally Alcohol Amount: 1-2 drinks per week Substance Use Type: Reports: Marijuana Substance Use Comment - Amount & Last Used: reports she uses marijuana "rarely" Smoking Status (MU): Never Smoked Tobacco Have You Smoked in the Last Year: No Review of Systems Negative: Fever Positive: Depressed All Other Systems Reviewed And Are Negative: Yes Physical Exam - Summary Physical Exam Summary: Appearance: The patient is well-nourished in no acute distress and in no acute pain. Skin: The skin is warm and dry and skin color reflects adequate perfusion. HEENT: The head is normocephalic and atraumatic. The pupils are equal and reactive. The conjunctivae are clear and without drainage. Nares are patent and without drainage. Mouth reveals moist mucous membranes and the throat is without erythema and exudate. The external ears are intact. The ear canals are patent and without drainage. The tympanic membranes are intact. Neck: The neck is supple with full range of motion and non-tender. There are no carotid bruits. There is no neck vein distension. Respiratory: Chest is non-tender. Lungs are clear to auscultation and breath sounds are symmetrical and equal. Cardiovascular: Heart is regular rate and rhythm. There is no murmur or rub auscultated. There is no peripheral edema and pulses are symmetrical and equal. Abdomen: The abdomen is soft and non-tender. There are normal bowel sounds heard in all four quadrants and there is no organomegaly palpated. Musculoskeletal: There is no back tenderness noted. Extremities are non-tender with full range of motion. There is good capillary refill. There is no peripheral edema or calf tenderness elicited. Neurological: Patient is alert and oriented to person, place and time. The patient has symmetrical motor strength in all four extremities. Cranial nerves are grossly intact. Deep tendon reflexes are symmetrical and equal in all four extremities. Psychiatric: The patient has a depressed affect. Triage Information Reviewed: Yes Vital Signs On Initial Exam: Initial Vitals Temp Pulse Resp BP Pulse Ox 98.6 F 95 18 163/100 100 03/18/18 16:54 03/18/18 16:54 03/18/18 16:54 03/18/18 16:54 03/18/18 16:54 Vital Signs Reviewed: Yes Diagnostics - Vital Signs Vital Signs Temp Pulse Resp BP Pulse Ox 03/18/18 16:54 98.6 F 95 18 163/100 100 - Laboratory Lab Results: Lab Results 03/18/18 Range/Units 17:21 WBC 7.1 (3.5-10.8) 10^3/ul RBC 4.11 (4.00-5.40) 10^6/ul Hgb 12.9 (12.0-16.0) g/dl Hct 38 (35-47) % MCV 92 (80-97) fL MCH 31 (27-31) pg MCHC 34 (31-36) g/dl RDW 13 (10.5-15) % Plt Count 272 (150-450) 10^3/ul MPV 7.4 (7.4-10.4) um3 Neut % (Auto) 67.6 (38-83) % Lymph % (Auto) 26.8 (25-47) % Yancey % (Auto) 4.1 (0-7) % Eos % (Auto) 0.8 (0-6) % Baso % (Auto) 0.7 (0-2) % Absolute Neuts (auto) 4.8 (1.5-7.7) 10^3/ul Absolute Lymphs (auto) 1.9 (1.0-4.8) 10^3/ul Absolute Monos (auto) 0.3 (0-0.8) 10^3/ul Absolute Eos (auto) 0.1 (0-0.6) 10^3/ul Absolute Basos (auto) 0.1 (0-0.2) 10^3/ul Absolute Nucleated RBC 0 10^3/ul Nucleated RBC % 0.1 Result Diagrams: 03/18/18 17:21 03/18/18 17:21 Lab Statement: Any lab studies that have been ordered have been reviewed, and results considered in the medical decision making process. Course/Dx - Course Course Of Treatment: Ms. Taveras presented complaining of depression. She was medically cleared and evaluated in the flex unit by the mental health deliver driver. Dr. Christensen was contacted and felt that she was safe for discharge and she has a safe follow-up plan in place. - Differential Dx/Clinical Impression Provider Diagnosis: Depression Discharge - Sign-Out/Discharge Documenting (check all that apply): Patient Departure - Discharge Plan Condition: Stable Disposition: HOME Patient Education Materials: Depression (ED), Anxiety (ED) Referrals: [facility] [Outside] ([facility] - Please follow up with [facility] as soon as possible) No Primary Care Phys,[facility] [Primary Care Provider] - - Billing Disposition and Condition Condition: STABLE Disposition: Home
[2018-03-18 17:52] LABS: EGFR Non-African American 74.5 (>60)
[2018-03-18 18:19] LABS: Urine Appearance Clear; Urine Blood 2+ (Negative); Urine Color Yellow; Urine Ketones Negative (Negative); Urine Protein Negative (Negative); Urine Red Blood Cell 3+(>10/hpf) (Absent); Urine Specific Gravity 1.026 (1.010-1.030); Urine Urobilinogen Negative (Negative); Urine White Blood Cell Trace(0-5/hpf) (Absent)
[2018-03-18 21:16] VITALS: BP 118/82
== END 2018-03-18 21:15 | disposition home or self-care (01) ==
LOC: ED 16:44
DX: F32.9 Major depressive disorder, single episode, unspecified (principal); R45.851 Suicidal ideations; Z82.49 Family history of ischemic heart disease and other diseases of the circulatory system; Z83.3 Family history of diabetes mellitus; Z81.8 Family history of other mental and behavioral disorders
CPT/HCPCS: 36415; 80053; 80307; 80320; 80329; 81003; 81015; 84443; 84702; 85025; 87086; 99284; G0480

== ENCOUNTER 2018-08-20 10:03 | Inpatient (IN) | payer OTHER ==
[2018-08-20] MEDS ORDERED: Nicotine Inhaler* 10 MG AMP INH PRN (10:16)
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
[2018-08-20 10:49] LABS: ABS Basophils 0 10^3/ul (0-0.2); ABS Eosinophils 0 10^3/ul (0-0.6); ABS Lymphocytes 1.4 10^3/ul (1.0-4.8); ABS Monocytes 0.2 10^3/ul (0-0.8); ABS Neutrophils 6.9 10^3/ul (1.5-7.7); ABS Nucleated RBC 0 10^3/ul; Eosinophil % 0.3 %; Hematocrit 41 % (35-47); Hemoglobin 13.8 g/dl (12.0-16.0); Lymphocyte % 15.9 %; Mean Corpuscular HGB Conc 34 g/dl (31-36); Mean Corpuscular Hemoglobin 31 pg (27-31); Mean Corpuscular Volume 93 fL (80-97); Mean Platelet Volume 7.5 fL (7.4-10.4); Nucleated Red Blood Cells % 0; Platelet Count 296 10^3/ul (150-450); Red Cell Distribution Width 12 % (10.5-15); White Blood Count 8.6 10^3/ul (3.5-10.8)
[2018-08-20 11:02] LABS: ALT 9 U/L (7-52); AST 18 U/L (13-39); Albumin 4.6 g/dL (3.2-5.2); Albumin/Globulin Ratio 1.2 (1-3); Alkaline Phosphatase 49 U/L (34-104); Anion Gap 9 mmol/L (2-11); BUN/Creatinine Ratio 11.6 (8-20); Blood Urea Nitrogen 10 mg/dL (6-24); CO2 Carbon Dioxide 26 mmol/L (22-32); Calcium 9.4 mg/dL (8.6-10.3); Chloride 102 mmol/L (101-111); EGFR African American 98.9 (>60); EGFR Non-African American 81.8 (>60); Glucose 92 mg/dL (70-100); Potassium 3.9 mmol/L (3.5-5.0); Sodium 137 mmol/L (135-145); Total Protein 8.6 g/dL (6.4-8.9)
[2018-08-20 11:05] LABS: Urine Appearance Turbid; Urine Bacteria 2+ (Absent); Urine Bilirubin Negative (Negative); Urine Blood 2+ (Negative); Urine Color Amber; Urine Glucose Negative (Negative); Urine Ketones 1+ (Negative); Urine Nitrite Negative (Negative); Urine Protein 2+(100 mg/dL) (Negative); Urine Red Blood Cell 3+(>10/hpf) (Absent); Urine Specific Gravity 1.021 (1.010-1.030); Urine Squamous Epithelial Cell Present (Absent); Urine Urobilinogen Negative (Negative); Urine White Blood Cell Trace(0-5/hpf) (Absent)
[2018-08-20 11:19] LABS: Acetaminophen < 15 mcg/mL; Alcohol < 10 mg/dL (<10); Salicylate < 2.50 mg/dL (<30)
[2018-08-20 11:24] LABS: Barbiturates Urine Screen None Detected (None Detect); Benzodiazepine Urine Screen None Detected (None Detect); Urine Cannabinoids Screen None Detected (None Detect)
[2018-08-20] MEDS ORDERED: Al Hydrox/Mg Hydrox/Simet LIQ* 30 ML UDC PO PRN (14:43)
[2018-08-20] MEDS ORDERED: Acetaminophen TAB* 325 MG PO PRN (14:43)
[2018-08-20] MEDS ORDERED: Venlafaxine EXT RELEASE CAP* 75 MG PO SCH (22:15)
[2018-08-20] MEDS: NORGESTIMATE ETHINYL ESTRADIOL PO SCH (22:27)
[2018-08-21] MEDS ORDERED: LORazepam TAB(*) 1 MG PO PRN (12:40)
[2018-08-21] MEDS: Venlafaxine EXT RELEASE CAP* 75 MG PO SCH (14:07)
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
[2018-08-21] MEDS: NORGESTIMATE ETHINYL ESTRADIOL PO SCH (20:34)
[2018-08-21] MEDS ORDERED: Prazosin CAP* 1 MG PO SCH (21:00)
[2018-08-22 08:15] LABS: HDL Cholesterol 49.3 mg/dL
[2018-08-22] MEDS: Venlafaxine EXT RELEASE CAP* 75 MG PO SCH (09:12)
--- NOTE | 2018-08-22 12:51 | PN ---
MHU: Group Therapy Note - Service Type Service Type: 04019 Group Psychotherapy - Cognitive Behavioral Group Therapy ( CBT):Patient was attentive and participatory in CBT programming this morning, and remained in good behavioral control. Patient expressed positive insights regarding relevant treatment interventions and goals.
--- NOTE | 2018-08-22 14:41 | PN ---
MHU: Group Therapy Note - Service Type Service Type: 13282 Psychotherapy - Individual Psychotherapy Note: Gera continues to express intrusive subjective depression, citing feeling "terrified " about prospects of immediate discharge. She describes encroaching depresson after returing from vacationing with a friend from [employer] in [place], describing how her friend is fortunate to have a supportive and nurturing family. Gera has historically struggled with negative self image, describing how her mother scolded her that she "wrecked" her mother and father's marriage by being born, and better be successful in her career because she is so unattractive she won't be able to be . Although as an adult Gera can understand her mother's shortcomings, being raised in such an inconsistent and at times a demeaning household has had a profound impact on her well being. Further discussion addressed her difficulties at [employer] and subsequent admission to a phd program in chemistry to the [employer]. She will complete the upcoming semester at [employer] to attain her master's before begining at the [employer] in the fall. Concerns regading depressive symptoms including lethality persist.
--- NOTE | 2018-08-22 15:45 | PN ---
Subjective - Subjective Date of Service: 08/22/18 Service Type: 52390 Hosp care 15 min low complexity Subjective: Olamide is distressed and unhappy. She's feeling like she wants to feel better but is flat and a bit hopeless. Olamide is found sitting on her bed in her room. She speaks quietly and is eager to restart her medications, but she also remarks that she is not excited about anything. Objective - Appearance Appearance: Healthy Appearing Dysmorphic Features: No Hygiene: Normal Grooming: Well Kept - Behavior Psychomotor Activities: Normal Exhibits Abnormal Movement: No - Attitude and Relatedness Attitude and Relatedness: Well Related Eye Contact: Good - Speech Quality: Unpressured Latencies: Normal Quantity: Appropriate - Mood Patient's Decription of Mood: "Sad" - Affect Observed Affect: Fair Affect Consistent with: Dysphoria - Thought Process Patient's Thought Process: Coherent, Goal Directed Thought Content: Yes Passive Wish, Yes Suicidal Planning, No Homicidal Ideation, No Paranoid Ideation - Sensorium Experiencing Hallucinations: No, Sensorium is Clear Type of Hallucinations: Visual: No, Auditory: No, Command: No - Level of Consciousness Level of Consciousness: Alert Orientation: Yes Intact, Yes Orientated to Time, Yes Orientated to Place, Yes Orientated to Person - Impulse Control Impulse Control: Impaired - Insight and Judgement Insight and Judgement: Impaired - Group Participation Particating in Group Activities: Yes - Medication Management Medication Management Adherence: Yes Assessment - Assessment Merits Inpatient Hospitalization: For Immediate Safety, For Stabilization, For Discharge Planning Inpatient DSM-V Dx: F33.2 Clinical Impression: Olamide is a 23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 She is here brought in by police and on a voluntary status. Plan - Plan Treatment Plan: Name: OLAMIDE SIDDIQUI Birthdate: 1995 [id number] Continued Medication Management: Continue Outpt Medication Medications: Current Medications Acetaminophen (Tylenol Tab*) 650 mg PO Q4H PRN PRN Reason: for pain; or Temp >101 F Al Hydrox/Mg Hydrox/Simethicone (Maalox Plus*) 30 ml PO Q4H PRN PRN Reason: INDIGESTION Last Admin: 08/21/18 23:40 Dose: 30 ml Aripiprazole (Abilify Tab*) 2 mg PO BEDTIME NICK Bupropion HCl (Wellbutrin Xl *) 150 mg PO DAILY NICK Lorazepam (Ativan Tab(*)) 1 mg PO BEDTIME PRN PRN Reason: INSOMNIA Nicotine (Nicotine Inhaler*) 10 mg INH Q2H PRN PRN Reason: CRAVING Pto: Norgestimate- Ethinyl Estradiol [ Estarylla 0.25-0.035 Mg Tablet]) 1 tab PO 2100 NICK Last Admin: 08/21/18 20:34 Dose: 1 tab Prazosin HCl (Minipress Cap*) 1 mg PO BEDTIME NICK Last Admin: 08/21/18 20:34 Dose: 1 mg Venlafaxine HCl (Effexor Xr Cap*) 75 mg PO DAILY NICK Last Admin: 08/22/18 09:12 Dose: 75 mg - Discharge Plan Discharge Plan: Outpatient Follow Up Outpatient Program: Counseling/Psych Services at [facility] Additional Comments: Olamide will have her medications restarted with target doses of Effexor XR of 150 mg, Wellbutrin XL 150 mg, and Abilify 5 mg. As she continues to have severe suicidal thoughts and does not feel safe for discharge, she will be retained here.
[2018-08-22] MEDS: Gabapentin CAP(*) 300 MG PO SCH (20:50)
[2018-08-22] MEDS: NORGESTIMATE ETHINYL ESTRADIOL PO SCH (20:52)
[2018-08-22] MEDS ORDERED: ARIPiprazole TAB* 2 MG PO SCH (21:00)
[2018-08-23] MEDS: Venlafaxine EXT RELEASE CAP* 75 MG PO SCH (09:05)
[2018-08-23] MEDS: BuPROPion XL* 150 MG TAB.XL PO SCH (09:05)
--- NOTE | 2018-08-23 12:09 | PN ---
MHU: Group Therapy Note - Service Type Service Type: 23649 Group Psychotherapy - Cognitive Behavioral Group Therapy ( CBT):Patient was attentive and participatory in CBT programming this morning, and remained in good behavioral control. Patient expressed positive insights regarding relevant treatment interventions and goals.
--- NOTE | 2018-08-23 20:08 | PN ---
Subjective - Subjective Date of Service: 08/23/18 Service Type: 45570 Hosp care 15 min low complexity Subjective: Olamide is feeling a bit better, but she is having a hard time acknowledging it and is not sure that it is really happening. We discuss the objective changes that have occurred for her, such as going to groups and not sleeping all day, and attempting to link those with a future change in mood. Objective - Appearance Appearance: Healthy Appearing Dysmorphic Features: No Hygiene: Normal Grooming: Well Kept - Behavior Psychomotor Activities: Normal Exhibits Abnormal Movement: No - Attitude and Relatedness Attitude and Relatedness: Well Related Eye Contact: Good - Speech Quality: Unpressured Latencies: Normal Quantity: Appropriate - Mood Patient's Decription of Mood: "Okay" - Affect Observed Affect: Constricted Affect Consistent with: Dysphoria - Thought Process Patient's Thought Process: Coherent, Goal Directed Thought Content: Yes Passive Wish, Yes Suicidal Planning, No Homicidal Ideation, No Paranoid Ideation - Sensorium Experiencing Hallucinations: No, Sensorium is Clear Type of Hallucinations: Visual: No, Auditory: No, Command: No - Level of Consciousness Level of Consciousness: Alert Orientation: Yes Intact, Yes Orientated to Time, Yes Orientated to Place, Yes Orientated to Person - Impulse Control Impulse Control: Tenuous - Insight and Judgement Insight and Judgement: Fair - Group Participation Particating in Group Activities: Yes - Medication Management Medication Management Adherence: Yes Assessment - Assessment Merits Inpatient Hospitalization: For Immediate Safety Inpatient DSM-V Dx: F33.2 Clinical Impression: Olamide is 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 She is here brought in by police and on a voluntary status. Plan - Plan Treatment Plan: Name: OLAMIDE SIDDIQUI Birthdate: 1995 [id number] Continued Medication Management: Continue Outpt Medication Medications: Current Medications Acetaminophen (Tylenol Tab*) 650 mg PO Q4H PRN PRN Reason: for pain; or Temp >101 F Al Hydrox/Mg Hydrox/Simethicone (Maalox Plus*) 30 ml PO Q4H PRN PRN Reason: INDIGESTION Last Admin: 08/21/18 23:40 Dose: 30 ml Aripiprazole (Abilify Tab*) 5 mg PO BEDTIME [facility] Bupropion HCl (Wellbutrin Xl *) 150 mg PO DAILY [facility] Last Admin: 08/23/18 09:05 Dose: 150 mg Gabapentin (Neurontin Cap(*)) 300 mg PO BEDTIME NICK Last Admin: 08/22/18 20:50 Dose: 300 mg Lorazepam (Ativan Tab(*)) 1 mg PO BEDTIME PRN PRN Reason: INSOMNIA Nicotine (Nicotine Inhaler*) 10 mg INH Q2H PRN PRN Reason: CRAVING Pto: Norgestimate- Ethinyl Estradiol [ Estarylla 0.25-0.035 Mg Tablet]) 1 tab PO 2100 [facility] Last Admin: 08/22/18 20:52 Dose: 1 tab Venlafaxine HCl (Effexor Xr Cap*) 150 mg PO DAILY [facility] - Discharge Plan Discharge Plan: Outpatient Follow Up Outpatient Program: Counseling/Psych Services at [place] Additional Comments: Olamide will have her medications restarted with target doses of Effexor XR of 150 mg, Wellbutrin XL 150 mg, and Abilify 5 mg. As she continues to have severe suicidal thoughts and does not feel safe for discharge, she will be retained here. 08/23/18: Olamide will stay for the weekend and until the suicidal ideation is reduced to a manageable level or preferably zero. She is well set up for outpatient treatment.
[2018-08-23] MEDS: ARIPiprazole TAB* 5 MG PO SCH (20:22)
[2018-08-23] MEDS: Gabapentin CAP(*) 300 MG PO SCH (20:23)
[2018-08-23] MEDS: NORGESTIMATE ETHINYL ESTRADIOL PO SCH (20:25)
[2018-08-24] MEDS: BuPROPion XL* 150 MG TAB.XL PO SCH (09:20)
[2018-08-24] MEDS: Venlafaxine EXT RELEASE CAP* 75 MG PO SCH (09:21)
--- NOTE | 2018-08-24 11:22 | PN ---
MHU: Group Therapy Note - Service Type Service Type: 60644 Group Psychotherapy - Cognitive Behavioral Group Therapy ( CBT):Patient was attentive and participatory in CBT programming this morning, and remained in good behavioral control. Patient expressed positive insights regarding relevant treatment interventions and goals.
[2018-08-24] MEDS: Gabapentin CAP(*) 300 MG PO SCH (20:18)
[2018-08-24] MEDS: ARIPiprazole TAB* 5 MG PO SCH (20:18)
[2018-08-24] MEDS: NORGESTIMATE ETHINYL ESTRADIOL PO SCH (21:57)
--- NOTE | 2018-08-24 22:07 | PN ---
Subjective - Subjective Date of Service: 08/24/18 Service Type: [id number] Hosp care 15 min low complexity Subjective: Olamide continues to feel unhappy and without hope. Nevertheless, there is some slightly detectable movement in her mood. She is making efforts to eat and to socialize. She is taking her medications, as well. She seems to respond well to encouragement. Objective - Appearance Appearance: Healthy Appearing Dysmorphic Features: No Hygiene: Normal Grooming: Well Kept - Behavior Psychomotor Activities: Normal Exhibits Abnormal Movement: No - Attitude and Relatedness Attitude and Relatedness: Well Related Eye Contact: Good - Speech Quality: Unpressured Latencies: Normal Quantity: Appropriate - Mood Patient's Decription of Mood: "Sad" - Affect Observed Affect: Constricted Affect Consistent with: Dysphoria - Thought Process Patient's Thought Process: Coherent Thought Content: Yes Passive Wish, Yes Suicidal Planning, No Homicidal Ideation, No Paranoid Ideation - Sensorium Experiencing Hallucinations: No, Sensorium is Clear Type of Hallucinations: Visual: No, Auditory: No, Command: No - Level of Consciousness Level of Consciousness: Alert Orientation: Yes Intact, Yes Orientated to Time, Yes Orientated to Place, Yes Orientated to Person - Impulse Control Impulse Control: Tenuous - Insight and Judgement Insight and Judgement: Fair - Group Participation Particating in Group Activities: Yes - Medication Management Medication Management Adherence: Yes Assessment - Assessment Merits Inpatient Hospitalization: For Immediate Safety, For Discharge Planning Inpatient DSM-V Dx: F33.2 Clinical Impression: Olamide is a 23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 She is here brought in by police and on a voluntary status. Plan - Plan Treatment Plan: Name: OLAMIDE SIDDIQUI Birthdate: 1995 [id number] Medications: Current Medications Acetaminophen (Tylenol Tab*) 650 mg PO Q4H PRN PRN Reason: for pain; or Temp >101 F Al Hydrox/Mg Hydrox/Simethicone (Maalox Plus*) 30 ml PO Q4H PRN PRN Reason: INDIGESTION Last Admin: 08/21/18 23:40 Dose: 30 ml Aripiprazole (Abilify Tab*) 5 mg PO BEDTIME [facility] Last Admin: 08/24/18 20:18 Dose: 5 mg Bupropion HCl (Wellbutrin Xl *) 150 mg PO DAILY [facility] Last Admin: 08/24/18 09:20 Dose: 150 mg Gabapentin (Neurontin Cap(*)) 300 mg PO BEDTIME [facility] Last Admin: 08/24/18 20:18 Dose: 300 mg Lorazepam (Ativan Tab(*)) 1 mg PO BEDTIME PRN PRN Reason: INSOMNIA Nicotine (Nicotine Inhaler*) 10 mg INH Q2H PRN PRN Reason: CRAVING Pto: Norgestimate- Ethinyl Estradiol [ Estarylla 0.25-0.035 Mg Tablet]) 1 tab PO 2100 [facility] Last Admin: 08/24/18 21:57 Dose: Not Given Venlafaxine HCl (Effexor Xr Cap*) 150 mg PO DAILY [facility] Last Admin: 08/24/18 09:21 Dose: 150 mg - Discharge Plan Discharge Plan: Outpatient Follow Up Additional Comments: Olamide will have her medications restarted with target doses of Effexor XR of 150 mg, Wellbutrin XL 150 mg, and Abilify 5 mg. As she continues to have severe suicidal thoughts and does not feel safe for discharge, she will be retained here. 08/23/18: Olamide will stay for the weekend and until the suicidal ideation is reduced to a manageable level or preferably zero. She is well set up for outpatient treatment. 08/24/18: Olamide agrees to continue with her work to socialize and participate. This is the most active role she can take in her discharge plan at this time.
[2018-08-25] MEDS: Venlafaxine EXT RELEASE CAP* 75 MG PO SCH (08:52)
[2018-08-25] MEDS: BuPROPion XL* 150 MG TAB.XL PO SCH (08:52)
--- NOTE | 2018-08-25 14:40 | PN ---
Subjective - Subjective Date of Service: 08/25/18 Service Type: [id number] Hosp care 15 min low complexity Subjective: Olamide is seen in weekend coverage for NPP, Jayne Anne. The patient is feeling better but still complains bitterly of difficulty sleeping, a problem that was occurring prior to admission as well. 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 She denies SI. Objective - Appearance Appearance: Well Developed/Nourished Dysmorphic Features: No Hygiene: Normal Grooming: Well Kept - Behavior Psychomotor Activities: Normal Exhibits Abnormal Movement: No - Attitude and Relatedness Attitude and Relatedness: Cooperative Eye Contact: Good - Speech Quality: Unpressured Latencies: Normal Quantity: Appropriate - Mood Patient's Decription of Mood: "Good" - Affect Observed Affect: Good Affect Consistent with: Euthymia - Thought Process Patient's Thought Process: Coherent Thought Content: No Passive Wish, No Suicidal Planning, No Homicidal Ideation, No Paranoid Ideation - Sensorium Experiencing Hallucinations: No, Sensorium is Clear Type of Hallucinations: Visual: No, Auditory: No, Command: No - Level of Consciousness Level of Consciousness: Alert Orientation: Yes Intact, Yes Orientated to Time, Yes Orientated to Place, Yes Orientated to Person - Impulse Control Impulse Control: Tenuous - Insight and Judgement Insight and Judgement: Fair - Group Participation Particating in Group Activities: Yes - Medication Management Medication Management Adherence: Yes Assessment - Assessment Merits Inpatient Hospitalization: Consolidate Improvements, Pending Safe DC Plan Inpatient DSM-V Dx: F33.2 Clinical Impression: Olamide is a 23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 She is here brought in by police and on a voluntary status. Plan - Plan Treatment Plan: Name: OLAMIDE SIDDIQUI Birthdate: 1995 [id number] Continue venlafaxine XR 150mg PO qam, aripiprazole 5mg PO qday and bupropion XL 150mg PO qday. Will increase gabapentin from 300 to 600mg PO qhs for insomnia. Continue inpatient level care. Continued Medication Management: Start Medication Medications: Current Medications Acetaminophen (Tylenol Tab*) 650 mg PO Q4H PRN PRN Reason: for pain; or Temp >101 F Al Hydrox/Mg Hydrox/Simethicone (Maalox Plus*) 30 ml PO Q4H PRN PRN Reason: INDIGESTION Last Admin: 08/21/18 23:40 Dose: 30 ml Aripiprazole (Abilify Tab*) 5 mg PO BEDTIME [facility] Last Admin: 08/24/18 20:18 Dose: 5 mg Bupropion HCl (Wellbutrin Xl *) 150 mg PO DAILY [facility] Last Admin: 08/25/18 08:52 Dose: 150 mg Gabapentin (Neurontin Cap(*)) 600 mg PO BEDTIME [facility] Lorazepam (Ativan Tab(*)) 1 mg PO BEDTIME PRN PRN Reason: INSOMNIA Nicotine (Nicotine Inhaler*) 10 mg INH Q2H PRN PRN Reason: CRAVING Pto: Norgestimate- Ethinyl Estradiol [ Estarylla 0.25-0.035 Mg Tablet]) 1 tab PO 2100 [facility] Last Admin: 08/24/18 21:57 Dose: Not Given Venlafaxine HCl (Effexor Xr Cap*) 150 mg PO DAILY [facility] Last Admin: 08/25/18 08:52 Dose: 150 mg - Discharge Plan Discharge Plan: Inpatient Hospitalization
[2018-08-25] MEDS: Gabapentin CAP(*) 300 MG PO SCH (20:09)
[2018-08-25] MEDS: ARIPiprazole TAB* 5 MG PO SCH (20:09)
[2018-08-25] MEDS: NORGESTIMATE ETHINYL ESTRADIOL PO SCH (20:10)
[2018-08-26] MEDS: BuPROPion XL* 150 MG TAB.XL PO SCH (09:26)
[2018-08-26] MEDS: Venlafaxine EXT RELEASE CAP* 75 MG PO SCH (09:26)
[2018-08-26] MEDS: Gabapentin CAP(*) 300 MG PO SCH (20:18)
[2018-08-26] MEDS: ARIPiprazole TAB* 5 MG PO SCH (20:18)
[2018-08-26] MEDS: NORGESTIMATE ETHINYL ESTRADIOL PO SCH (20:51)
[2018-08-27 09:40] VITALS: BP 144/117
[2018-08-27] MEDS: BuPROPion XL* 150 MG TAB.XL PO SCH (09:42)
[2018-08-27] MEDS: Venlafaxine EXT RELEASE CAP* 75 MG PO SCH (09:42)
--- NOTE | 2018-08-27 23:06 | DS ---
CC: [facility] * DISCHARGE SUMMARY: DATE OF ADMISSION: 08/20/18 DATE OF DISCHARGE: 08/30/18 PROVIDER: Jayne Anne NP in Psychiatry. SUPERVISING PHYSICIAN: Dr. Sergey Trimble.* (DICTATED BY JAYNE ANNE NP ) DIAGNOSES: [place] I: Major depressive disorder, recurrent, moderate. [place] II: Cluster B traits CONDITION AT THE TIME OF DISCHARGE: Improved, psychiatrically cleared, stable. Participated in some group, social with peers. She has done well here psychiatrically. She tolerated the restarting of medications well. She will attend the [facility]. MENTAL STATUS EXAM: At the time of discharge, Gera is calm, cooperative, and makes good eye contact. She is alert and oriented x3. Grooming is good. Speech pace is normal. Thought processes are logical. She is not psychotic or delusional. She denies AH, VH, SI, and HI. Insight and judgment are fair to good. She is willing to follow up and urged to see a therapist. DISCHARGE INSTRUCTIONS TO THE PATIENT: A. Medications: 1. Aripiprazole 5 mg at bedtime, dispensed 30. 2. Wellbutrin XL 150 mg, dispensed 30. 3. Gabapentin 600 mg at bedtime, dispensed 60 of 300 mg caps. 4. Lorazepam 1 mg at bedtime p.r.n. insomnia, dispensed 30. 5. Venlafaxine XR 75 mg capsules, dispensed 90 for a total of 225 mg. B. Diet is regular. C. Activities: As tolerated. Gera is a smoker but has declined a referral to the [facility] Smokers Quit Line at this time. If she decides to access the free service in the future, she can contact the Quit Line toll free at [phone]. There are no studies pending at the time of discharge. D. Followup care: She has an appointment on 08/27/18 at noon. She does not have a primary care doctor, but she can use [facility]. E. Substance abuse followup is not indicated. HOSPITAL COURSE: Part A: Chief complaint: "I wish I in my sleep." The patient is a 23-year- old single [place] female with history of major depressive disorder brought in by law enforcement after stating that she had several methods of wanting to herself and thus she was brought to the hospital. She has been here twice before and has been to another hospital 4 years ago. 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 She will then go to the [facility] to pursue a PhD. This is all complicated by her being international and what job she could get, where she is allowed to go. She states she has no strong feelings about the [employer] [facility]. She is not excited anymore, though she was 3 months ago. She is alarmed at herself in that "nothing can spark a tinge of rashad in me , it's too much effort." She finds she was working 7 days a week and she also had to find a new PhD program. She is full of self-hatred. She has no energy. Her sleep is poor. She is guilty about what she has done to her advisor at work to inconvenience him. She finds it difficult to concentrate. Her appetite is so poor that she feels like she will vomit when she smells food and she has suicidal ideation. Part B. Psychiatric treatment was rendered. Gera was admitted to the adult behavioral unit and placed on 15 minute checks for safety. Gera did eventually do well on the unit and she went to some groups. She interacted with most peers well and was overly familiar with at least two male peers. She stated that she needed their attention because she felt abandoned by her friends as well as the person who she had thought was her boyfriend. We did discuss this at length in that she needed to find alternative ways to feel better about herself and about her needs. She tolerated med changes well; Effexor, Abilify, Wellbutrin were all restarted. She is on an antipsychotic; therefore, it is important to note that hemoglobin A1c is 4.9, triglycerides are 87, cholesterol 140, LDL cholesterol 73 , and HDL cholesterol 49.3. Incidentally, her TSH is 0.80. There was no contact with her family as her family is in [place] and does not approve of mental health problems. No consults were entered. Gera had a significant improvement over the weekend. Throughout the week before that, she was distressed, depressed, unhappy, and wishing she would when she woke up in the morning. She states that today she feels like she does not want to and that she is actually hungry. She recognizes that she does not eat as much as other people do, but by her standard, she is eating significant amount more than she used to and she is actually hungry. This is an indicator for her of how her depressive symptoms are going, and in this case , she is improving significantly. JAYNE ANNE, CARIDAD [id number]/[facility] #: [id number] CAMILA
== END 2018-08-27 11:00 | disposition home or self-care (01) | DRG 885 ==
LOC: ED 10:03 → BSU 14:43
PROVIDERS: ADMIT Psychiatry & Neurology Psychiatry; ATTEND Psychiatry & Neurology Psychiatry
DX: F33.2 Major depressive disorder, recurrent severe without psychotic features (principal); R45.851 Suicidal ideations; F17.210 Nicotine dependence, cigarettes, uncomplicated; Z79.899 Other long term (current) drug therapy; Z81.8 Family history of other mental and behavioral disorders
CPT/HCPCS: 36415; 80053; 80061; 80307; 80320; 80329; 81003; 81015; 83036; 84443; 85025; 87086; 90834; 90853; 99222; 99231; 99238; 99284; A9270-GY; G0480

== ENCOUNTER 2018-09-10 19:46 | Inpatient (IN) | payer OTHER ==
--- NOTE | 2018-09-10 20:12 | ED ---
Psychiatric Complaint - HPI Summary HPI Summary: Patient is a 23 y/o F presenting to ED via EMS w/ complaints of SI w/ plan, depression. She states that she had called the suicide prevention line today as she was experiencing SI and depression. Police arrived at her door (patient did not call them). She states that as they were knocking on the door, she thought about taking all of her medications. Patient states that she just ended up drinking some alcohol. PMHx of depression, patient is on Wellbutrin, Effexor, Gabapentin, Abilify, Ativan. She states she sees a psychiatrist. 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 On triage, pain is denied. Nothing is noted to aggravate/ alleviate Sx. Home medications and allergies are reviewed. - History Of Current Complaint Time Seen by Provider: 09/10/18 19:52 Hx Obtained From: Patient Onset/Duration: Still Present Timing: Constant Severity Currently: None Character: Depressed Aggravating Factor(s): Nothing Alleviating Factor(s): Nothing Associated Signs And Symptoms: Positive: Negative Has Suicidal: Reports: Thoughts, With A Plan - Allergies/Home Medications Allergies/Adverse Reactions: Allergies Allergy/AdvReac Type Severity Reaction Status Date / Time benzoyl peroxide Allergy Rash Verified 08/20/18 10:11 prazosin Allergy Airway Verified 08/22/18 15:49 Obstruction Home Medications: Home Medications Venlafaxine EXT RELEASE CAP* [Effexor Xr CAP*] 225 mg PO DAILY 09/10/18 [ History Confirmed 09/10/18] PMH/Surg Hx/FS Hx/Imm Hx Endocrine/Hematology History: Denies: Hx Thyroid Disease Cardiovascular History: Denies: Hx Hypertension History: Reports: Other Problems/Disorders - HPV positive Sensory History: Denies: Hx Contacts or Glasses, Hx Hearing Aid Opthamlomology History: Denies: Hx Contacts or Glasses Psychiatric History: Reports: Hx Anxiety, Hx Depression - onset 2016, Hx Inpatient Treatment, Hx Community Mental Health Tx - CAPS Denies: Hx Eating Disorder - 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, Hx of Violent Episodes Against Others - Family History Known Family History: Positive: Cardiac Disease - grandmother, Diabetes - grandmother, Other - depression (mother) - Social History Alcohol Use: Weekly Alcohol Amount: 1-2 drinks per week Substance Use Type: Reports: None Substance Use Comment - Amount & Last Used: reports she uses marijuana "rarely" Smoking Status (MU): Never Smoked Tobacco Have You Smoked in the Last Year: No Review of Systems Negative: Fever - on vitals, temp is 99 F Psychological: Other - SI with plan, depression All Other Systems Reviewed And Are Negative: Yes Physical Exam - Summary Physical Exam Summary: Appearance: Well appearing, no pain distress Skin: warm, dry, reflects adequate perfusion Head/face: normal Eyes: EOMI, NIR ENT: normal Neck: supple, non-tender Respiratory: CTA, breath sounds present Cardiovascular: RRR, pulses symmetrical Abdomen: non-tender, soft Musculoskeletal: normal, strength/ROM intact Neuro: normal, sensory motor intact, A&Ox3 Psych: depressed affect Triage Information Reviewed: Yes Vital Signs On Initial Exam: Initial Vitals Temp Pulse Resp BP Pulse Ox 99 F 96 16 136/104 98 09/10/18 20:13 09/10/18 20:13 09/10/18 20:13 09/10/18 20:13 09/10/18 20:13 Vital Signs Reviewed: Yes Re-Evaluation - Re-Evaluation First Eval Re-Evaluation Time: 21:41 Comment: At this time, Nurse Vera reports that the patient has just stated that she actually took twenty 1 mg Ativan while she was in the hospital. Second Eval Re-Evaluation Time: 21:47 Comment: Nurse Vera states that poison control recommended 68 hour observation, EKG, check QRS and QTc. Course/Dx - Course Course Of Treatment: Patient is a 23 y/o F presenting to ED via EMS w/ complaints of SI w/ plan, depression. She states that she had called the suicide prevention line today as she was experiencing SI and depression. Police arrived at her door (patient did not call them). She states that as they were knocking on the door, she thought about taking all of her medications. Patient states that she just ended up drinking some alcohol. PMHx of depression, patient is on Wellbutrin, Effexor, Gabapentin, Abilify, Ativan. She states she sees a psychiatrist. 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 On physical exam, depressed affect is noted. Bloodwork, UA, Tox screen were obtained. 2141 - At this time, Nurse Vera reports that the patient has just stated that she actually took twenty 1 mg Ativan while she was in the hospital. Poison control recommended 68 hour observation, EKG, check QRS and QTc. Patient is signed out to Dr. Dumont pending labs, serum alcohol, EKG and MHE. - Differential Dx/Clinical Impression Provider Diagnosis: Suicidal ideation, Depression Discharge - Sign-Out/Discharge Documenting (check all that apply): Sign-Out Patient Signing out patient TO: Hipolito Dumont Receiving patient FROM: [facility] - Discharge Plan Referrals: [facility] [employer] [Primary Care Provider] - - Attestation Statements Document Initiated by Scribe: Yes Documenting Scribe: DEISI HOUSTON Provider For Whom Scribe is Documenting (Include Credential): CHARLES WOODS MD Scribe Attestation: I, DEISI HOUSTON , scribed for CHARLES WOODS MD on 09/10/18 at 5460. Status of Scribe Document: Ready
[2018-09-10 20:26] LABS: Urine Appearance Clear; Urine Bacteria 1+ (Absent); Urine Bilirubin Negative (Negative); Urine Blood 1+ (Negative); Urine Color Straw; Urine Glucose Negative (Negative); Urine Ketones Negative (Negative); Urine Nitrite Negative (Negative); Urine Protein Negative (Negative); Urine Red Blood Cell Trace(0-2/hpf) (Absent); Urine Specific Gravity 1.005 (1.010-1.030); Urine Squamous Epithelial Cell Present (Absent); Urine Urobilinogen Negative (Negative); Urine White Blood Cell Trace(0-5/hpf) (Absent)
[2018-09-10 20:35] LABS: Barbiturates Urine Screen None Detected (None Detect); Benzodiazepine Urine Screen None Detected (None Detect); Urine Cannabinoids Screen None Detected (None Detect)
[2018-09-10 21:17] LABS: ABS Basophils 0.1 10^3/ul (0-0.2); ABS Eosinophils 0.1 10^3/ul (0-0.6); ABS Lymphocytes 1.3 10^3/ul (1.0-4.8); ABS Monocytes 0.4 10^3/ul (0-0.8); ABS Neutrophils 4.7 10^3/ul (1.5-7.7); ABS Nucleated RBC 0 10^3/ul; Eosinophil % 1.1 %; Hematocrit 43 % (35-47); Hemoglobin 14.4 g/dl (12.0-16.0); Lymphocyte % 20.5 %; Mean Corpuscular HGB Conc 34 g/dl (31-36); Mean Corpuscular Hemoglobin 31 pg (27-31); Mean Corpuscular Volume 93 fL (80-97); Mean Platelet Volume 7.9 fL (7.4-10.4); Nucleated Red Blood Cells % 0; Platelet Count 279 10^3/ul (150-450); Red Blood Count 4.59 10^6/ul (4.00-5.40); Red Cell Distribution Width 12 % (10.5-15); White Blood Count 6.5 10^3/ul (3.5-10.8)
[2018-09-10 21:36] LABS: ALT 12 U/L (7-52); AST 19 U/L (13-39); Albumin 5.3 g/dL (3.2-5.2); Albumin/Globulin Ratio 1.5 (1-3); Alkaline Phosphatase 49 U/L (34-104); Anion Gap 9 mmol/L (2-11); BUN/Creatinine Ratio 11.5 (8-20); Blood Urea Nitrogen 9 mg/dL (6-24); CO2 Carbon Dioxide 26 mmol/L (22-32); Calcium 9.9 mg/dL (8.6-10.3); Chloride 101 mmol/L (101-111); EGFR African American 110.7 (>60); EGFR Non-African American 91.5 (>60); Globulin 3.6 g/dL (2-4); Glucose 86 mg/dL (70-100); Sodium 136 mmol/L (135-145); Total Protein 8.9 g/dL (6.4-8.9)
[2018-09-10 21:42] LABS: HCG Pregnancy < 0.60 mIU/mL
[2018-09-10 21:56] LABS: Acetaminophen < 15 mcg/mL; Alcohol 32 mg/dL (<10); Salicylate < 2.50 mg/dL (<30)
[2018-09-10 22:11] LABS: TSH (Thyroid Stimulating Horm) 3.34 mcIU/mL (0.34-5.60)
--- NOTE | 2018-09-10 22:25 | ED ---
Progress - Progress Note Progress Note: This patient was signed out from Dr. Smith to Dr. Dumont, pending dispo, awaiting EKG, serum alcohol, and MHE. EKG taken at 2150 reveals NSR at 93 and P waves, QRS complex, and T waves are within normal limits, T waves and intervals are normal, no ischemic changes. This is a normal EKG. This patient will be admitted to Dr. Madison with dx of suicidal ideation and alcohol intoxication. Re-Evaluation - Re-Evaluation First Eval Re-Evaluation Time: 21:41 Comment: At this time, Nurse Jody reports that the patient has just stated that she actually took twenty 1 mg Ativan while she was in the hospital. Second Eval Re-Evaluation Time: 21:47 Comment: Nurse Jody states that poison control recommended 68 hour observation, EKG, check QRS and QTc. Course/Dx - Course Course Of Treatment: Patient is a 23 y/o F presenting to ED via EMS w/ complaints of SI w/ plan, depression. She states that she had called the suicide prevention line today as she was experiencing SI and depression. Police arrived at her door (patient did not call them). She states that as they were knocking on the door, she thought about taking all of her medications. Patient states that she just ended up drinking some alcohol. PMHx of depression, patient is on Wellbutrin, Effexor, Gabapentin, Abilify, Ativan. She states she sees a psychiatrist. 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 On physical exam, depressed affect is noted. Bloodwork, UA, Tox screen were obtained. 2140 - At this time, Nurse Vera reports that the patient has just stated that she actually took twenty 1 mg Ativan while she was in the hospital. Poison control recommended 68 hour observation, EKG, check QRS and QTc. Patient is signed out to Dr. Dumont pending labs, serum alcohol, EKG and MHE. - Diagnoses Provider Diagnoses: Suicidal ideation, Alcohol intoxication Discharge - Sign-Out/Discharge Documenting (check all that apply): Patient Departure - admit - Discharge Plan Condition: Guarded Disposition: ADMITTED TO [facility] Referrals: [facility] - Shaan JONES [Primary Care Provider] - - Billing Disposition and Condition Condition: GUARDED Disposition: Admitted to [facility] - Attestation Statements Document Initiated by Araceli: Yes Documenting Scribe: Caleb Yi Provider For Whom Araceli is Documenting (Include Credential): Hipolito Dumont MD Scribe Attestation: I, Caleb Yi, scribed for Hipolito Dumont MD on 09/11/18 at 0641. Scribe Documentation Reviewed: Yes Provider Attestation: The documentation as recorded by the Caleb baxter accurately reflects the service I personally performed and the decisions made by me, Hipolito Dumont MD Status of Scribe Document: Viewed
[2018-09-11] MEDS ORDERED: Al Hydrox/Mg Hydrox/Simet LIQ* 30 ML UDC PO PRN (10:14)
[2018-09-11] MEDS ORDERED: Acetaminophen TAB* 325 MG PO PRN (10:14)
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
[2018-09-11] MEDS: ARIPiprazole TAB* 5 MG PO SCH (20:26)
[2018-09-11] MEDS: Gabapentin CAP(*) 300 MG PO SCH (20:27)
[2018-09-12] MEDS: BuPROPion XL* 150 MG TAB.XL PO SCH (08:34)
[2018-09-12] MEDS: Venlafaxine EXT RELEASE CAP* 75 MG PO SCH (08:34)
[2018-09-12] MEDS: Vitamin THERAPEUTIC TAB PO SCH (08:35)
--- NOTE | 2018-09-12 15:49 | PN ---
Subjective - Subjective Date of Service: 09/12/18 Service Type: 30024 Hosp care 25 min moderate complexity Subjective: Olamide wants to go home tomorrow. She states she doesn't feel like meds can make a difference. She discussed that she understands that she will not be able to find what she is looking for outside of herself, but does not seem to fully comprehend how to accomplish that goal. She is seen at visiting hours with a man who she makes intense eye contact with and leans close to. When confronted with what appears to be flirting, she states she knows that's what it looks like, but nothing will happen because he has a girlfriend anyway. Her insight and judgment are poor in this area. Objective - Appearance Appearance: Healthy Appearing Dysmorphic Features: No Hygiene: Normal Grooming: Well Kept - Behavior Psychomotor Activities: Normal Exhibits Abnormal Movement: No - Attitude and Relatedness Attitude and Relatedness: Cooperative Eye Contact: Good - Speech Quality: Unpressured Latencies: Normal Quantity: Appropriate - Mood Patient's Decription of Mood: "Sad" - Affect Observed Affect: Tearful - Thought Process Patient's Thought Process: Coherent, Goal Directed Thought Content: No Passive Wish, No Suicidal Planning, No Homicidal Ideation, No Paranoid Ideation - Sensorium Experiencing Hallucinations: No, Sensorium is Clear Type of Hallucinations: Visual: No, Auditory: No, Command: No - Level of Consciousness Level of Consciousness: Alert Orientation: Yes Intact, Yes Orientated to Time, Yes Orientated to Place, Yes Orientated to Person - Impulse Control Impulse Control: Tenuous - Insight and Judgement Insight and Judgement: Fair - Group Participation Particating in Group Activities: Yes - Medication Management Medication Management Adherence: Yes Assessment - Assessment Merits Inpatient Hospitalization: For Immediate Safety, For Discharge Planning Inpatient DSM-V Dx: F33.1 Clinical Impression: Olamide is a 23-year-old Fijian woman who has been to this hospital before, this is the third time, who experiences loneliness and despair which leads to drinking and suicidal ideation which then leads to hospitalization here, Plan - Plan Treatment Plan: Name: OLAMIDE SIDDIQUI Birthdate: 1995 [id number] Continued Medication Management: Continue Outpt Medication Medications: Current Medications Acetaminophen (Tylenol Tab*) 650 mg PO Q4H PRN PRN Reason: PAIN or TEMP > 101 F Al Hydrox/Mg Hydrox/Simethicone (Maalox Plus*) 30 ml PO Q4H PRN PRN Reason: INDIGESTION Aripiprazole (Abilify Tab*) 5 mg PO BEDTIME [facility] Last Admin: 09/11/18 20:26 Dose: 5 mg Bupropion HCl (Wellbutrin Xl *) 150 mg PO DAILY [facility] Last Admin: 09/12/18 08:34 Dose: 150 mg Gabapentin (Neurontin Cap(*)) 600 mg PO BEDTIME [facility] Last Admin: 09/11/18 20:27 Dose: 600 mg Multivitamins (Theragran Tab*) 1 tab PO DAILY [facility] Last Admin: 09/12/18 08:35 Dose: 1 tab Venlafaxine HCl (Effexor Xr Cap*) 225 mg PO DAILY [facility] Last Admin: 09/12/18 08:34 Dose: 225 mg - Discharge Plan Discharge Plan: Outpatient Follow Up Outpatient Program: Counseling[facility]Psych Services at [place] Additional Comments: Olamide will be discharged tomorrow with secure supports in the community and encouragement to reach out for help when she can.
[2018-09-12] MEDS: ARIPiprazole TAB* 5 MG PO SCH (20:56)
[2018-09-12] MEDS: Gabapentin CAP(*) 300 MG PO SCH (20:56)
[2018-09-13] MEDS: Venlafaxine EXT RELEASE CAP* 75 MG PO SCH (08:28)
[2018-09-13] MEDS: Vitamin THERAPEUTIC TAB PO SCH (08:28)
[2018-09-13] MEDS: BuPROPion XL* 150 MG TAB.XL PO SCH (08:28)
[2018-09-13 08:39] VITALS: BP 121/83
--- NOTE | 2018-09-14 19:29 | DS ---
CC: [facility] * DISCHARGE SUMMARY: DATE OF ADMISSION: 09/11/18 DATE OF DISCHARGE: 09/13/18 PROVIDER: Jayne Anne NP, in Psychiatry. SUPERVISING PHYSICIAN: Dr. Sergey Trimble.* (DICTATED BY JAYNE ANNE NP ) DIAGNOSES: [place] I: Major depressive disorder. [place] II: Borderline personality disorder. CONDITION AT THE TIME OF DISCHARGE: Gera is improved. She is psychiatrically cleared and stable. She participated in groups and was social with peers. She has done well here psychiatrically and no medications were changed on this visit. She will be attending [facility] to engage in a therapy group for graduate school women. MENTAL STATUS EXAMINATION: At the time of discharge, Gera is calm, cooperative , and makes good eye contact. She is alert and oriented x3. Her grooming is excellent. Her speech pace is normal. Her thought processes are logical. She is not psychotic or delusional. She denies AH, VH, SI, and HI. Her insight is fair. Her judgment is fair. She is willing to follow up and she has urged to see her therapist. DISCHARGE INSTRUCTIONS TO THE PATIENT: A. Medications: 1. Aripiprazole 5 mg daily at bedtime. 2. Wellbutrin XL 150 mg daily. 3. Gabapentin 600 mg at bedtime. 4. Effexor XR 225 mg daily. B. Diet is regular. C. Activities: As tolerated. Gera has declined a referral to the [place] Smokers' Quitline at this time. If she decides to access this free service in the future, she can contact the quitline toll-free at [phone]. There are no studies pending at the time of discharge. D. Followup care: Gera has been referred to Helen Mcadonald LMSW at [facility] on 09/13/18 at 3 p.m. E. Substance abuse followup is not indicated. HOSPITAL COURSE: Part A: Chief complaint: "That person who will take care of me doesn't exist. I've been searching for them for years." The patient is a 23- year-old single Norwegian female with a history of depressive disorder and several admissions here, who arrives, brought in by ambulance and placed on a voluntary status following her conversation with the Suicide Hotline where they called the law enforcement and the ambulance. Gera is feeling sad and full of despair. She called the Suicide Hotline and threatened suicide with a plan and then hung up. The person who works at the suicide crisis line called her back, but in the meantime they had called the police who then arrived and Gera in the meantime had been drinking alcohol. She states she should have taken the Ativan and alcohol because "I was going to be in the ambulance in the end." The reasoning here is a little mystifying, but this entire string of events happened due to her feeling loneliness and despair in the wake of a male friend trying to comfort her and telling her that he and everyone else loved her. She dismissed that stating that people who have depressive disorder cannot feel love the same way and that he could not possibly understand, which precipitated a downward spiral. She is having trouble with sleeping. She is found wrapped in a blanket on top of the blanket in bed. Her interest is diminished. She has decreased energy, inability to concentrate. She is uninterested in eating and has suicidal ideation. Part B: Psychiatric treatment was rendered. Gera was admitted to the adult behavioral unit and placed on q.15-minute checks for safety. Gera did well on the unit and went to some groups. She interacted with peers well and was seen to interact with her visitors in an overly friendly manner given the relationship that she had with them. This behavior was discussed with her and the fact that she needed to access her own personal strengths rather than those of others was talked about in conversation. She and I both agree that a med change would not be necessary during this visit and that a short visit would be the best. She is on Abilify, so we should note that her hemoglobin A1c is 4.9% . Her triglycerides are 87, cholesterol 140, LDL cholesterol 73, HDL cholesterol 49.3. We should note that her TSH is 3.34, her free T4 is 0.78. No consults were entered. Gera is improved from her starting point when she was admitted. She does not have suicidal ideation at this time. She does appear to continue to feel guilty about her behavior, but this is beginning to come with what appears to be improved insight. JAYNE ANNE, WET CROWN BLOCKING OPERATOR [id number]/[facility] #: [id number] [facility]LEY HEALTH SYSTEMPorfirio
== END 2018-09-13 12:30 | disposition home or self-care (01) | DRG 885 ==
LOC: ED 19:46 → BSU 09-11 09:00
PROVIDERS: ADMIT Psychiatry & Neurology Psychiatry; ATTEND Psychiatry & Neurology Psychiatry
DX: F33.1 Major depressive disorder, recurrent, moderate (principal); R45.851 Suicidal ideations; F60.3 Borderline personality disorder; Z62.811 Personal history of psychological abuse in childhood; Z81.8 Family history of other mental and behavioral disorders; Z79.899 Other long term (current) drug therapy
CPT/HCPCS: 36415; 80053; 80307; 80320; 80329; 81003; 81015; 84443; 84702; 85025; 87086; 93005; 99222; 99284; A9270-GY; G0480

== ENCOUNTER 2018-09-27 18:41 | Inpatient (IN) | payer OTHER ==
--- NOTE | 2018-09-27 19:26 | ED ---
Psychiatric Complaint - HPI Summary HPI Summary: This patient is a 23 year old female brought in by ambulance to [facility] with a chief complaint of SI since earlier today. Patient states that she was speaking with her therapist earlier and expressed that she wished people could consent to euthanization. Patient states she wishes she could be euthanized so she could do it and get it over with. The pain is rated 0/10 in severity. Symptoms aggravated by nothing. Symptoms alleviated by nothing. Patient denies SI, HI currently however. Patient has a hx of anxiety and depression. - History Of Current Complaint Chief Complaint: [facility]entalHealth Time Seen by Provider: 09/27/18 19:19 Hx Obtained From: Patient Onset/Duration: Lasting Hours, Still Present Timing: Constant Severity Initially: Moderate Character: Depressed Aggravating Factor(s): Nothing Alleviating Factor(s): Nothing Related History: Positive For: Prior Psychiatric Issues Has Suicidal: Reports: Thoughts Has Homicidal: Denies: Thoughts - Allergies/Home Medications Allergies/Adverse Reactions: Allergies Allergy/AdvReac Type Severity Reaction Status Date / Time benzoyl peroxide Allergy Rash Verified 09/28/18 03:50 prazosin Allergy Airway Verified 09/28/18 03:50 Obstruction PMH/Surg Hx/FS Hx/Imm Hx Previously Healthy: No Endocrine/Hematology History: Denies: Hx Thyroid Disease Cardiovascular History: Denies: Hx Hypertension History: Reports: Other Problems/Disorders - HPV positive Sensory History: Denies: Hx Contacts or Glasses, Hx Hearing Aid Opthamlomology History: Denies: Hx Contacts or Glasses Psychiatric History: Reports: Hx Anxiety, Hx Depression, Hx Inpatient Treatment - [facility], Hx Community Mental Health Tx - [facility] Denies: Hx Eating Disorder, Hx of Violent Episodes Against Others Infectious Disease History: No Infectious Disease History: Denies: Traveled Outside the [place] in Last 30 Days - Family History Known Family History: Positive: Cardiac Disease - grandmother, Diabetes - grandmother, Other - depression (mother) - Social History Alcohol Use: Occasionally Alcohol Amount: 1-2 drinks per week Hx Substance Use: Yes Substance Use Type: Reports: Marijuana Substance Use Comment - Amount & Last Used: reports she uses marijuana "rarely" Hx Tobacco Use: No Smoking Status (MU): Never Smoked Tobacco Have You Smoked in the Last Year: No Review of Systems Negative: Fever Positive: Depressed, Other - Negative: SI, HI All Other Systems Reviewed And Are Negative: Yes Physical Exam - Summary Physical Exam Summary: VITAL SIGNS: Reviewed. GENERAL: Patient is a well-developed and nourished female who is lying comfortable in the stretcher. Patient is not in any acute respiratory distress. HEAD AND FACE: No signs of trauma. No ecchymosis, hematomas or skull depressions. No sinus tenderness. EYES: PERRLA, EOMI x 2, No injected conjunctiva, no nystagmus. EARS: Hearing grossly intact. Ear canals and tympanic membranes are within normal limits. MOUTH: Oropharynx within normal limits. NECK: Supple, trachea is midline, no adenopathy, no JVD, no carotid bruit, no c- spine tenderness, neck with full ROM. CHEST: Symmetric, no tenderness at palpation LUNGS: Clear to auscultation bilaterally. No wheezing or crackles. CVS: Regular rate and rhythm, S1 and S2 present, no murmurs or gallops appreciated. ABDOMEN: Soft, non-tender. No signs of distention. No rebound no guarding, and no masses palpated. Bowel sounds are normal. EXTREMITIES: FROM in all major joints, no edema, no cyanosis or clubbing. NEURO: Alert and oriented x 3. No acute neurological deficits. Speech is normal and follows commands. PSYCH: Denies SI SKIN: Dry and warm Triage Information Reviewed: Yes Vital Signs On Initial Exam: Initial Vitals Temp Pulse Resp BP Pulse Ox 98.0 F 83 16 132/88 99 09/27/18 19:03 09/27/18 19:03 09/27/18 19:03 09/27/18 19:03 09/27/18 19:03 Vital Signs Reviewed: Yes Diagnostics - Vital Signs Vital Signs Temp Pulse Resp BP Pulse Ox 09/27/18 19:03 98.0 F 83 16 132/88 99 - Laboratory Result Diagrams: 09/27/18 19:40 09/27/18 19:40 Lab Statement: Any lab studies that have been ordered have been reviewed, and results considered in the medical decision making process. Course/Dx - Course Course Of Treatment: This patient is a 23 year old female brought in by ambulance to [facility] with a chief complaint of SI since earlier today. Patient states that she was speaking with her therapist earlier and expressed that she wished people could consent to euthanization. Patient states she wishes she could be euthanized so she could do it and get it over with. Bloodwork Obtained. Urinalysis Obtained. Following [facility], Dr. Diaz (psych) suggests patient be admitted to psych with involuntary status. Patient will be admitted with a diagnosis of recurrent depressive episode. Patient is advised to follow up with PCP in 2 days. The patient is agreeable with this plan. - Differential Dx/Clinical Impression Provider Diagnosis: Recurrent brief depressive episodes - Physician Notifications Discussed Care Of Patient With: Reddy Diaz - Psych Time Discussed With Above Provider: 00:45 Instructed by Provider To: Admit As Observation Patient Is Medically Stable For: Psych Evaluation Discharge - Sign-Out/Discharge Documenting (check all that apply): Patient Departure Patient Received Moderate/Deep Sedation with Procedure: No - Discharge Plan Condition: Good Disposition: ADMITTED TO [facility] - Billing Disposition and Condition Condition: GOOD Disposition: Admitted to [facility] - Attestation Statements Document Initiated by Araceli: Yes Documenting Scribe: Glenn Yi Provider For Whom Araceli is Documenting (Include Credential): Campos Clark MD Scribe Attestation: Glenn Paris scribed for Campos Clark MD on 09/30/18 at 1926. Scribe Documentation Reviewed: Yes Provider Attestation: The documentation as recorded by the Glenn baxter accurately reflects the service I personally performed and the decisions made by Susi thakkar MD Status of Scribsilvana Document: Viewed
[2018-09-27 19:50] LABS: ABS Basophils 0 10^3/ul (0-0.2); ABS Eosinophils 0 10^3/ul (0-0.6); ABS Lymphocytes 1.5 10^3/ul (1.0-4.8); ABS Monocytes 0.4 10^3/ul (0-0.8); ABS Neutrophils 4.4 10^3/ul (1.5-7.7); ABS Nucleated RBC 0 10^3/ul; Eosinophil % 0.6 %; Hematocrit 39 % (35-47); Lymphocyte % 23.5 %; Mean Corpuscular HGB Conc 33 g/dl (31-36); Mean Corpuscular Hemoglobin 31 pg (27-31); Mean Corpuscular Volume 93 fL (80-97); Mean Platelet Volume 7.8 fL (7.4-10.4); Nucleated Red Blood Cells % 0.1; Platelet Count 263 10^3/ul (150-450); Red Cell Distribution Width 12 % (10.5-15); White Blood Count 6.3 10^3/ul (3.5-10.8)
[2018-09-27 20:02] LABS: ALT 10 U/L (7-52); AST 16 U/L (13-39); Albumin 4.7 g/dL (3.2-5.2); Albumin/Globulin Ratio 1.5 (1-3); Alkaline Phosphatase 44 U/L (34-104); Anion Gap 8 mmol/L (2-11); BUN/Creatinine Ratio 14.1 (8-20); Blood Urea Nitrogen 13 mg/dL (6-24); CO2 Carbon Dioxide 27 mmol/L (22-32); Calcium 9.4 mg/dL (8.6-10.3); Chloride 104 mmol/L (101-111); EGFR African American 91.5 (>60); EGFR Non-African American 75.6 (>60); Globulin 3.1 g/dL (2-4); Glucose 117 mg/dL (70-100); Potassium 3.9 mmol/L (3.5-5.0); Sodium 139 mmol/L (135-145); Total Protein 7.8 g/dL (6.4-8.9)
[2018-09-27 20:07] LABS: Acetaminophen < 15 mcg/mL; Alcohol < 10 mg/dL (<10); Salicylate < 2.50 mg/dL (<30)
[2018-09-27 20:08] LABS: HCG Pregnancy < 0.60 mIU/mL
[2018-09-27 20:24] LABS: TSH (Thyroid Stimulating Horm) 0.82 mcIU/mL (0.34-5.60)
[2018-09-28] MEDS ORDERED: traZODone TAB* 100 MG PO PRN (01:08)
[2018-09-28] MEDS ORDERED: LORazepam TAB(*) 1 MG PO PRN (04:03)
[2018-09-28] MEDS ORDERED: BuPROPion XL* 150 MG TAB.XL PO SCH (09:00)
[2018-09-28] MEDS ORDERED: Venlafaxine EXT RELEASE CAP* 75 MG PO SCH (09:00)
[2018-09-28 09:24] VITALS: BP 110/78
[2018-09-28] MEDS ORDERED: traZODone TAB* 100 MG PO SCH (21:00)
[2018-09-28] MEDS ORDERED: Gabapentin CAP(*) 300 MG PO SCH (21:00)
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
== END 2018-09-28 13:20 | disposition home or self-care (01) | DRG 885 ==
LOC: ED 18:41 → BSU 09-28 03:20
PROVIDERS: ADMIT Psychiatry & Neurology Psychiatry; ATTEND Emergency Medicine
DX: F33.1 Major depressive disorder, recurrent, moderate (principal); R45.851 Suicidal ideations; F60.3 Borderline personality disorder; F41.9 Anxiety disorder, unspecified; Z88.8 Allergy status to other drugs, medicaments and biological substances; Z82.49 Family history of ischemic heart disease and other diseases of the circulatory system; Z83.3 Family history of diabetes mellitus; Z81.8 Family history of other mental and behavioral disorders; Z72.89 Other problems related to lifestyle; Z91.410 Personal history of adult physical and sexual abuse
CPT/HCPCS: 36415; 80053; 80320; 80329; 84443; 84702; 85025; 99284; A9270-GY; G0480